=== PATIENT | female | born 1990 | race Two or more races ===

== ENCOUNTER 2022-11-28 13:00 | Outpatient (CLI) | payer BC, SELFPAY ==
--- NOTE | 2022-11-28 13:00 | CRLHL7_ITS ---
For Patients: As a result of the Century Cures Act, medical imaging exams and procedure reports are released immediately into your electronic medical record. You may view this report before your referring provider. If you have questions, please contact your health care provider. INDICATION: First trimester scan, establish dates. COMPARISON: None. TECHNIQUE: Real-time mead-scale imaging of the pelvis was performed. FINDINGS: Sonographic imaging demonstrates a single living intrauterine gestation. The embryo demonstrates a regular cardiac rate measuring 161 beats per minute. The embryo`s crown-rump length measurement of 3.7 cm corresponds to a gestational age of 10 weeks 4 days with a sonographic due date of 06/22/2023. There is a normal-appearing yolk sac. There are no gross abnormalities noted within the embryo at this early state of development. The gestational sac has a normal appearance. There is no evidence of a perigestational hemorrhage. The amount of fluid within the sac appears appropriate for gestational age. The cervix is closed. Small posterior uterine fibroid measures 1.4 x 1.1 x 1.2 cm. The ovaries are of normal size. Corpus luteal cyst left ovary. There are no suspicious fluid collections noted in the cul-de-sac. IMPRESSION: Single living intrauterine with sonographic gestational age 10 weeks 4 days and sonographic due date 06/22/2023. Small posterior fibroid measuring 1.4 x 1.1 x 1.2 cm. Dictated by Sidney Duque MD @ 11/28/2022 1:53:34 PM (Electronically Signed)
== END 2022-11-28 13:01 | disposition home or self-care (01) ==
LOC: US 13:01
PROVIDERS: Visit Provider Registered Nurse
DX: Z34.91 Encounter for supervision of normal pregnancy, unspecified, first trimester (principal); Z3A.08 8 weeks gestation of pregnancy
CPT/HCPCS: 76817; 86592; 86703; 86762; 86787; 86803; 86850; 86900; 86901; 87086; 87340; 87491; 87591

== ENCOUNTER 2023-02-13 12:53 | Outpatient (CLI) | payer BC, SELFPAY ==
--- NOTE | 2023-02-13 13:00 | CRLHL7_ITS ---
For Patients: As a result of the Century Cures Act, medical imaging exams and procedure reports are released immediately into your electronic medical record. You may view this report before your referring provider. If you have questions, please contact your health care provider. INDICATION: Evaluate anatomy. COMPARISON: 11/28/2022 TECHNIQUE: Real time mead scale imaging of the fetus was performed as well as color Doppler analysis of the umbilical vessels. FINDINGS: Sonographic imaging demonstrates a single living intrauterine gestation. Fetus demonstrates a regular cardiac rate of 141 beats per minute. Fetus has a vertex physician. The placenta lies anteriorly without evidence of placenta previa. The edge of the placenta is located 7.2 cm from the internal cervical os. Amniotic fluid volume appears normal. Single deepest vertical pocket: 4.1 cm. The cervix is closed and measures 3.8 cm in length. The composite ultrasound gestational age is calculated at 21 weeks 4 days with an estimated sonographic due date of 06/22/2023. The estimated weight is 437 grams which lies at the 46th %. The following biometric measurements were obtained: Biparietal diameter: 5.3 cm/22 weeks 0 days 63rd% Head circumference: 19.8 cm/22 weeks 0 days 56th% Abdominal circumference: 16.6 cm/21 weeks 5 days 46th% Femur length: 3.6 cm/21 weeks 3 days 35th% The HC/AC ratio measures: 1.19 range (1.06-1.24) On anatomic survey, there is a normal appearance of the cerebral ventricles, cavum septi pellucidi, cisterna magna and cerebellum. The nose, lips, and facial profile appear normal. The cervical, thoracic and lumbar spine are well visualized and appear normal. There is a normal four-chamber heart view and the left and right ventricular outflow tracts appear normal. The diaphragm and stomach appear normal. The kidneys and bladder also appear normal. There is a normal three-vessel cord and cord insertion site. The four extremities appear normal. IMPRESSION: Normal OB ultrasound exam with concordance of clinical and sonographic dating. No intrinsic abnormalities noted on anatomic survey. Dictated by Sidney Duque MD @ 02/17/2023 5:52:44 AM (Electronically Signed)
== END 2023-02-13 12:54 | disposition home or self-care (01) ==
PROVIDERS: Visit Provider Obstetrics & Gynecology
DX: Z34.92 Encounter for supervision of normal pregnancy, unspecified, second trimester (principal); Z3A.22 22 weeks gestation of pregnancy
CPT/HCPCS: 76805

== ENCOUNTER 2023-03-27 13:31 | Outpatient (CLI) | payer BC, SELFPAY | END 2023-03-27 13:32 | disposition home or self-care (01) | PROVIDERS: Visit Provider Obstetrics & Gynecology | DX: Z34.92 Encounter for supervision of normal pregnancy, unspecified, second trimester (principal) | CPT/HCPCS: 86592 ==

== ENCOUNTER 2023-05-06 15:05 | Outpatient (CLI) | payer BC, SELFPAY ==
[2023-05-06 15:18] VITALS: PULSE 65; O2SAT 98
[2023-05-06 15:23] VITALS: PULSE 76; O2SAT 96
[2023-05-06 15:28] VITALS: PULSE 77; O2SAT 98
[2023-05-06 15:31] VITALS: TEMP 36.6
[2023-05-06 15:32] VITALS: BP 108/53; PULSE 68
--- NOTE | 2023-05-06 17:05 | P.OBLDTN_ITS ---
OB - Triage/Final Diagnosis Visit Information Time Seen by Provider: 17:00 Date Seen: 05/06/23 Narrative: The patient is a 32 year old 4 para 2 at 33 weeks gestation by first trimester US seen in triage for pelvic pressure. course is complicated by GERD, obesity and small fibroid uterus. Patient notes that she has had constant pelvic pain when she is up on her feet, greatest at work. She notes her pelvic pain was so severe that she left work today. 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 Over the last few days, she notes increasingly painful constant pelvic pressure where baby feels as though they have dropped. She additionally will notice intermittent episodes of tightening, about once per hour. She notes her pelvic pressure and contra ctions/Bahman Kelly do resolve with rest. She notes her pain is very different than what she has previously experienced in labor. Additionally is experiencing intermittent left low back/upper buttock pain, no radiation down the leg, paresthesias or weakness. Patient has tried to manage her pain with support belt and stretching, notes these are helpful but her pain persists. She has not utilized [id number] Tylenol, ice/heat, nor physical therapy. She notes that she has considered starting her maternity leave now, given her discomforts at work. She denies any vaginal bleeding or leaking of fluids. She notes an episode of thick/jelly like discharge yesterday, possibly representing mucus plug. She denies any other abnormal vaginal discharge, vulvovaginal pruritus or burning. She endorses urinary urgency attributed to pressure on her bladder, no dysuria, frequency or malodor. She has otherwise been in her lower most a bit of health, review systems negative. Evaluation Cervical dilation (cm): 0 Cervical effacement (%): 25 Laboratory results: Laboratory Tests 05/06/23 05/06/23 Range/Units 16:31 16:08 Urine Color Pending Urine Appearance Pending Urine pH Pending Ur Specific Dudley Pending Urine Protein Pending Urine Glucose (UA) Pending Urine Ketones Pending Urine Blood Pending Urine Nitrite Pending Urine Bilirubin Pending Urine Urobilinogen Pending Ur Leukocyte Esterase Pending Vaginal Bacterial Vaginosis Pending Vaginal Clau species Pending Vag C. glabrata/krusei Pending Vag T. vaginalis Pending Vital signs: Vital Signs - 24 hr 05/06/23 15:18 05/06/23 15:23 05/06/23 15:28 Temperature Pulse Rate Blood Pressure Pulse Oximetry 98 96 98 05/06/23 15:31 05/06/23 15:32 Temperature 98 F Pulse Rate 68 Blood Pressure 108/53 L Pulse Oximetry Comments: General: Alert and oriented, no acute distress. Resting in bed. Psych: Appropriate mood and affect Abdomen: Gravid, otherwise soft and nondistended. Tenderness is noted on left abdomen with Trever examination, likely over the site of her left rectus abdominus muscle. Carnett sign was equivocal. Tenderness is present even with fairly light palpation, no rebound or guarding. No tenderness to palpation over the pubic symphysis. Back: Tenderness to palpation along left SI joint/upper buttock. Pelvic: Perineum is dry, scant physiologic discharge noted at vaginal introitus. Vaginitis swab obtained. Sterile vaginal exam completed, cervix is closed and long, approximately 25% effaced. Cervical position is posterior and fetus is not engaged in the pelvis. Fetus (Single) Heart Rate Baseline: 130 [facility] Variability: Moderate (6-25) Monitor Accelerations: Absent Monitor Decelerations: None Station: -3 Final Diagnosis (1) related pelvic pain in third trimester, antepartum: Status: Acute Problem details: Ms. Clemens is a 32yo at 33w2d GA seen for pelvic pressure and abdominal/back pain in . course is complicated by GERD, obesity and small uterine fibroid. Patient is seen today with increasingly uncomfortable pelvic pressure and intermittent contractions about once per hour. Her symptoms are significantly exacerbated while at work attributed to increased activity, resolve with rest. Her pain required her to leave work today due to discomfort, where she subsequently presented to care to ensure her baby was doing well. Clinical description of her constant pelvic pain and rare contractions only in the setting of activity/work is fortunately most consistent with musculoskeletal discomforts of . No signs or symptoms of labor at this time - given absent contractions on tocometry and closed cervix. Patient notes that her symptoms feel very different than that experienced in labor previously. She notes mild improvement of her constant pelvic pain with use of a support belt and stretching while at work, but these conditions have become increasingly bothersome through time. Physical exam today is reassuring as above, aside from left tenderness to palpation overlying the left rectus abdomi nus muscle and SI joint. We discussed musculoskeletal pain in , likely etiology including advancing gestation and multiparity. Encouraged her to utilize her support belt throughout the day as this is previously been helpful. Encourage stretching/yoga, light activity. Discussed pain management with ice/heat, lidocaine patch and Tylenol as needed. We discussed strict return precautions in the setting of regular/painful uterine contractions, vaginal bleeding, leaking of fluids or decreased movement. Plan to notify patient if her vaginitis swab or urinalysis are suggestive of infectious etiology. She is hesitant to return to work due to the discomfort she experiences there, where I have provided a work note to excuse her from all work on 05/07/2023 through 05/08/2023. She is interested in starting her maternity leave sooner, which she certainly can do but I did explain that medically we do not need to place her on bed rest. No further questions today. Patient expressed understanding and is agreeable to above plan.
--- NOTE | 2023-05-06 17:16 | PC.OBNST ---
NST Note NST Note Start: 05/06/23 15:26 Freq: ONCE Status: Active Protocol: Document 05/06/23 17:13 SCIENTOLOGY (Rec: 05/06/23 17:14 SCIENTOLOGY [id number]) NST Note 4 Para (# of births) 2 EDC 06/22/23 Gestational Age In Weeks & Days 33 Weeks & 2 Days Patient Presented with Complaint(s) of Contractions/cramping Reactive Yes Appropriate for Gestational Age Yes KATE Jain Date 05/06/23 Reactive Yes Appropriate for Gestational Age Yes KATE Patterson (provider) Date 05/06/23 OB NST charge Yes Complete NST Note via Write Note Yes The provider's electronic signature indicates the NST is reactive/appropriate for gestational age. *Note to provider: If an addendum is required, open the patient's chart and click on the note under the Nurse/Allied Health tab.
[2023-05-06 17:17] LABS: Appearance Urine Cloudy (Clear); Bilirubin Urine Negative (Negative); Blood Urine Negative (Negative); Color Urine Yellow (Yellow); Glucose Urine Negative (Negative); Ketones Urine Trace (Negative); Leukocyte Esterase Urine 1+ (Negative); Nitrite Urine Negative (Negative); Protein Urine Trace (Negative); Urobilinogen Urine 0.2 (0.2-1.0)
[2023-05-06 17:47] LABS: Clue Cells No Clue Cells Seen (None Seen); Trichomonas No Trichomonas Seen (None Seen); Yeast No Yeast Seen (None Seen)
[2023-05-07 10:00] LABS: Amorphous Sediment Urine Moderate; Bacteria Urine Moderate; Squamous Epithelial Cell Urine Few (None-Few)
== END 2023-05-06 16:35 | disposition home or self-care (01) ==
LOC: OB OUT 15:05 → OB 15:05
PROVIDERS: Visit Provider Obstetrics & Gynecology
DX: O47.03 False labor before 37 completed weeks of gestation, third trimester (principal); Z3A.33 33 weeks gestation of pregnancy
CPT/HCPCS: 59025; 81003; 81015; 81513; 84112; 87086; 87210; 87481; 87661; G0463

== ENCOUNTER 2023-05-28 13:03 | Outpatient (CLI) | payer BC, SELFPAY ==
[2023-05-29 14:14] LABS: Strep B DNA Probe Negative (Negative)
[2023-05-29 14:22] LABS: Strep B Susceptibility Needed? No
== END 2023-05-28 13:04 | disposition home or self-care (01) ==
LOC: NFLDREF 13:08
PROVIDERS: PCP Obstetrics & Gynecology; Visit Provider Obstetrics & Gynecology
DX: Z34.83 Encounter for supervision of other normal pregnancy, third trimester (principal)
CPT/HCPCS: 87081; 87653

== ENCOUNTER 2023-06-11 18:18 | Emergency (ER) | payer BC, SELFPAY ==
[2023-06-11 18:26] VITALS: BP 120/71; PULSE 84; RESP 18; TEMP 36.3; O2SAT 97; BMI 36.9
--- NOTE | 2023-06-11 18:48 | ED.GENADULT ---
HPI - General Adult General Chief complaint: Cough Stated complaint: cough, sore throat Time Seen by Provider: 06/11/23 18:31 History of Present Illness HPI narrative: This 32-year-old female comes in with her daughter for both of them to be seen. This patient reports cough and sore throat over the past week or so. About a week ago she did have a nasal pharyngeal swab done and returned with negative results. She is mostly concerned about her daughter's possibility of having an ear infection but wishes to be checked out herself also. She arrives with normal vital signs. She is in her 3rd trimester . Related Data Home Medications Medication Instructions Recorded Confirmed docosahexaenoic acid 200 mg 200 mg PO DAILY PRN 11/28/22 06/05/23 capsule ( DHA) Previous Rx's Medication Instructions Recorded omeprazole 20 mg tablet,delayed 20 mg PO QDAY #30 tabs 03/27/23 release Allergies Allergy/AdvReac Type Severity Reaction Status Date / Time No Known Drug Allergies Allergy Verified 06/05/23 14:12 Review of Systems Narrative: Constitutional: No fevers, no weight gain or loss. Eyes: No discharge. No vision changes. HENT: No congestion, no ear pain. She reports a sore throat. Cardiovascular: No chest pain, no palpitations. Respiratory: No shortness of breath, no wheezes. Occasional cough. Gastrointestinal: No abdominal pain, no vomiting, no diarrhea. Genitourinary: No dysuria, no hematuria. Musculoskeletal: Normal range of motion. Skin: No rashes, no pruritis. Neurological: No dizziness, weakness, sensory change, speech change. Endo/Heme/Allergies: No bruising or bleeding. No polydipsia. Pysch: no suicidality, no anxiety, no insomnia. All other systems reviewed and are negative. 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 HEENT: Normocephalic, atraumatic. Mild pharyngeal erythema without exudate or hypertrophy. Neck: Normal range of motion. Nontender. Supple. Heart: Regular. No murmurs. Normal rate. Intact distal pulses. Lungs: Clear to auscultation. No chest discomfort. No wheezes, rhonchi, or rales. Abdomen: Normal bowel sounds. Nontender gravid.. No rebound tenderness. Genitalia: Deferred. Back: No midline tenderness. Normal range of motion. Extremities: Normal range of motion. No injury. Skin: Intact. No rash. Warm. No erythema or pallor. Neurologic: No altered sensation. No weakness. Alert and oriented. Psychiatric: No suicidality. No anxiety or depression. No insomnia. Nursing notes and vitals signs are reviewed. Const: Vital Signs, click to edit/add: Vital Signs - 24 hr 06/11/23 18:26 Temperature 97.4 F L Pulse Rate [Right Pulse Oximeter] 84 Respiratory Rate 18 Blood Pressure [Ri ght Upper Arm] 120/71 Pulse Oximetry 97 Oxygen Delivery Me thod Room Air Course Vital Signs Vital signs: Initial Vital Signs Temperature 97.4 F L 06/11/23 18:26 Temperature Source Temporal Artery Scan 06/11/23 18:26 Pulse Rate 84 06/11/23 18:26 Pulse Rhythm Regular 06/11/23 18:26 Pulse Strength 3+ Normal 06/11/23 18:26 Respiratory Rate 18 06/11/23 18:26 Blood Pressure 120/71 06/11/23 18:26 Blood Pressure Mean 87 06/11/23 18:26 Blood Pressure Position Sitting 06/11/23 18:26 Pulse Oximetry 97 06/11/23 18:26 Oxygen Delivery Method Room Air 06/11/23 18:26 Vital Signs Temperature 97.4 F L 06/11/23 18:26 Pulse Rate 84 06/11/23 18:26 Respiratory Rate 18 06/11/23 18:26 Blood Pressure 120/71 06/11/23 18:26 Pulse Oximetry 97 06/11/23 18:26 Oxygen Delivery Method Room Air 06/11/23 18:26 Temperature 97.4 F L 06/11/23 18:26 Pulse Rate 84 06/11/23 18:26 Respiratory Rate 18 06/11/23 18:26 Blood Pressure 120/71 06/11/23 18:26 Pulse Oximetry 97 06/11/23 18:26 Oxygen Delivery Method Room Air 06/11/23 18:26 Medical Decision Making MDM Narrative Medical decision making narrative: This patient reports a sore throat and has an occasional cough. She was tested for viral infections last week and declines any further testing today. I did state that we could do a strep test but again she declined this test today also. She does have normal vital signs and her exam is also reassuring. The patient did receive an oral dose of dexamethasone. Discharge Plan Discharge Clinical Impression: Pharyngitis Patient Disposition: Home, Self-Care Condition: Stable Additional Instructions: Continue current plans. Follow up with MD return if worsening. Prescriptions: No Action omeprazole 20 mg tablet,delayed release (DR/EC) 20 mg PO QDAY Qty: 30 1RF DHA 200 mg capsule 200 mg PO DAILY PRN Follow Up/Referrals: Provider,Not a Local [Primary Care Provider] - Stand Alone Forms: [employer] Info Instructions
[2023-06-11] MEDS: dexAMETHasone 10 MG/ML inj PO (19:04)
== END 2023-06-11 19:16 | disposition home or self-care (01) ==
PROVIDERS: Emergency Provider Emergency Medicine Emergency Medical Services
DX: J02.9 Acute pharyngitis, unspecified (principal)
CPT/HCPCS: 99282; 99283; 99284; J1100

== ENCOUNTER 2023-06-19 07:06 | Inpatient (IN) | payer BC, SELFPAY ==
[2023-06-19] VITALS (40 sets, daily range): BP systolic 98–127; BP diastolic 50–76; PULSE 50–71; RESP 16; TEMP 36.7–37.1; O2SAT 90–100; BMI 36.8
[2023-06-19] MEDS: miSOPROStoL 25 MCG/0.25 TABLET VAGINAL (08:19)
[2023-06-19 12:19] LABS: Basophils Absolute Auto 0.01 K/uL (0.00-0.30); Basophils Percent Auto 0.1 % (0.0-3.0); Eosinophils Absolute Auto 0.12 K/uL (0.00-0.50); Eosinophils Percent Auto 1.4 % (0.0-7.0); Hematocrit 35.9 % (33.0-51.0); Hemoglobin* 12.1 gm/dL (12.0-16.0); Immature Granulocytes Abs Auto 0.07 K/uL (0.00-0.30); Immature Granulocytes Pct Auto 0.8 %; Lymphocytes Absolute Auto 1.84 K/uL (0.90-2.90); Lymphocytes Percent Auto 22.1 % (20-44); Mean Corpuscular HGB Conc 34 gm/dL (32-36); Mean Corpuscular Hemoglobin 31 pg (26-34); Mean Corpuscular Volume 92 fL (80-100); Neutrophils Absolute Auto 5.63 K/uL (1.7-7.0); Neutrophils Percent Auto 67.6 % (42.0-72.0); Platelet Count* 309 K/uL (140-440); RDW Coefficient of Variation % 12.7 % (11.5-15.5); Red Blood Count 3.91 m/uL (4.00-5.20); White Blood Count* 8.34 K/uL (4.50-11.00)
[2023-06-19 12:21] LABS: Slide Review Reflex No
[2023-06-19] MEDS: LACTATED RINGERS 1000 ML 1,000 ML 1200 ML IV (12:42)
[2023-06-19] MEDS: OXYTOCIN 30 unit/500 ML in NS 30 UNIT/500 ML BAG IVPB (13:35)
[2023-06-19] MEDS: fentaNYL 100 MCG/2 ML inj IVP (14:22)
[2023-06-19] MEDS: ROPIVACAINE 0.2% 100 ml 100 ML 12 MG EPIDURAL (15:09)
[2023-06-19] MEDS: LIDOCAINE 2% (PF) 5 ML VIAL EPIDURAL (15:10)
--- NOTE | 2023-06-19 15:14 | P.ANBPRC_ITS ---
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[employer] What is your current living situation?: I presently have a place to live Problems where you live: no known problems In the past 12 months, utilities in danger of being shut off: no In past 12 months, lack of transportation kept you from medical appts, meetings, work, or getting things needed for daily living: no In the past 12 mos, have been you worried that your food would run out before you had money to buy more?: never true In the past 12 mos, the food you bought just didn't last and you didn't have money to buy more?: never true Smoking Status: Never smoker How often does anyone, including family, friends and others, physically hurt you : never How often does anyone, including family, friends and others, insult or talk down to you: never How often does anyone, including family, friends and others, threaten you with harm: never How often does anyone, including family, friends and others, scream or curse at you: never Little interest or pleasure in doing things: not at all Feeling down, depressed, or hopeless: not at all Meds Home Medications and Allergies Home Medications Medication Instructions Recorded Confirmed Type docosahexaenoic acid 200 mg 200 mg PO DAILY PRN 11/28/22 06/19/23 History capsule ( DHA) Allergies Allergy/AdvReac Type Severity Reaction Status Date / Time No Known Drug Allergies Allergy Verified 06/19/23 08:41 Results Labs Labs: Laboratory Results - last 24 hr 06/19/23 12:08 WBC 8.34 RBC 3.91 L Hgb 12.1 Hct 35.9 MCV 92 MCH 31 MCHC 34 RDW Coeff of Steph 12.7 Plt Count 309 Neut % (Auto) 67.6 Lymph % (Auto) 22.1 [place] % (Auto) 8.0 Eos % (Auto) 1.4 Baso % (Auto) 0.1 Neut # (Auto) 5.63 Lymph # (Auto) 1.84 [place] # (Auto) 0.70 Eos # (Auto) 0.12 Baso # (Auto) 0.01 Abs Immat Gran (auto) 0.07 Imm/Tot Granulo (auto) 0.8 Blood Type A Positive Antibody Screen NEGATIVE Vital Signs Vital Signs: Last Vital Signs Temp 98.1 F 06/19/23 13:11 Pulse 56 L 06/19/23 15:13 Resp 16 06/19/23 13:11 BP 124/58 L 06/19/23 15:13 Pulse Ox 94 06/19/23 15:11 Weight: 100.244 kg Height: 165.1 cm Anesthesia Procedures Epidural Insertion Patient Location: OB Start Time: 14:45 Stop Time: 15:20 Start Date: 06/19/23 Stop Date: 06/19/23 Reason for Block: primary anesthetic Patient Position: sitting Performed By: Don Flores Preanesthetic Checklist: IV checked, risks and benefits discussed, surgical consent, monitors and equipment checked, pre-op evaluation, timeout performed a nd anesthesia consent Prep: chlorhexidine gluconate Monitoring: blood pressure monitoring, playground monitor, continuous pulse oximetry and heart rate Approach: midline Vertebral Space: lumbar (1-5) Needle Type: Tuohy needle Injection Technique: continuous catheter (catheter) Needle gauge: 17 Needle Length (cm): 10 cm Needle Insertion Depth (cm): 5 Catheter Gauge: 19 Catheter Type: multi-orifice Catheter at skin depth (cm): 10 Test Dose Result: negative and lidocaine 1.5% with epinephrine 1 to 200,000
[2023-06-19] MEDS: LACTATED RINGERS 1000 ML 1,000 ML 124 ML IV (15:23)
--- NOTE | 2023-06-19 19:00 | W.PM.LDBA ---
Subjective History of Present Illness Time Seen by Provider: 08:00 Date Seen: 06/19/23 Narrative: Patient is being admitted to Labor and Delivery for IOL. She is a 32 year old at 39.4 weeks gestation. Her full history and physical was dictated by myself on 06/05/23. Please see this for details. Active movement. Denies LOF, vaginal bleeding or abnormal vaginal discharge. Rare contractions. Specific Issues/Plans G 4 P 2011 Fiancee: Jeffrey. Baby: Boy Lennie. Children: Surendra (18yo), Sandi (2yo) H&P by Dr. Ling on 06/05/2023 1. History of macrosomia. 1st baby: 10 lb 4 oz. Recommend early 1hr: 87mg/dL on 02/13 2. BMI 34.3. Hemoglobin A1c: 5.5 3. Brother of gastric cancer in mid-April. 4. Genetic screening desired. Maternity 21 test ordered: Low risk, Boy! 5. NEEDS PP pap w/ HPV: Did not receive pap result from [facility] [employer] COVID: Completed and boosted x1. Due for booster. Recommended Flu: 02/13/23 Tdap: 04/23/2023 RSV: 05/28/2023 H&P: 06/05/23 OB - Problem Based A/P Additional Plan (1) : Status: Acute Plan - Admit for elective induction of labor - Will start with Cytotec per protocol due to low Mario's score and high head OB Exam Physical Exam Vital signs: Temp Pulse Resp BP Pulse Ox 98.7 F 59 L 16 124/68 99 06/19/23 16:43 06/19/23 18:13 06/19/23 18:13 06/19/23 18:13 06/19/23 18:13 Narrative: Physical exam: General: No acute distress Psych: Alert and oriented x4, full affect HEENT: Normocephalic, atraumatic Lungs: Unlabored breathing Abdomen: Gravid. soft, no tenderness, rebound, or guarding Skin: No lesions or rashes Lower extremities: Trace bilateral lower extremity edema Pelvic exam: Per RN 1.5/50/ and unable to palpate head. BSUS preformed by myself that confirmed cephalic presentation but the by foraminal diameter is well above the pubic symphysis.
--- NOTE | 2023-06-19 19:04 | W.PM.VAGDEL1 ---
Procedure Delivery date: 06/19/23 Procedure Done: Global Intrapartal Events: Labor Induction and Mod/Heavy Meconium Fluid Delivery monitor: external FHT Route of delivery: Laceration description: None Estimated blood loss (mL): 50 Anesthesia type: Epidural Disposition: floor Narrative: Benita is a 32 year-old G4 P 2014 admitted on 06/19/23 at 39 and 4/7 weeks gestation for elective induction of labor. Cervical exam on admission was 1.5 cm/50 % effaced/ballotable station with membranes intact in vertex presentation. Contractions were every 15 minutes. heart rate demonstrated baseline 130 bpm with moderate variability, + accelerations, - decelerations; a category I tracing. GBS negative. SROM occurred at 16 10 on 06/19/2023 with thick meconium-stained fluid. Labor Analgesia: Fentanyl/Epidural Pitocin: Yes Labor course: Patient had 25 mcg of misoprostol at 8:19 a.m. she subsequently progressed to 3/50/3 at 11 30. Pitocin was initiated at 1:35 p.m. Patient requested an epidural at 2:52 p.m. I presented at bedside for anticipated a from at 3:56 pm. She was found to be complete at that time. Amniotic sac was still intact and easily visible with separation of the labia. Very thick meconium was noted inside the amniotic sac. It was opaque that I was unable to visualize scalp through the back. Pediatric team requested to be at bedside at that time. I drained her bladder as a Raza catheter had not yet been placed after the epidural. Urine output was 100 mL of clear yellow urine. Patient started pushing at 1607 and SROM occurred, confirming thick meconium. heart tones during second stage were Category II was deep variables down the 60s with spontaneous resolution after contractions. Baseline of 140s, moderate variability and + accels. At time a viable 1610 delivered in vertex OA presentation over intact via spontaneous vaginal delivery. Infant was placed on maternal abdomen. Noted to have meconium stained skin, umbilical cord and placenta. Cord was clamped and cut after a 30-60 second delay. Nose and mouth were bulb suctioned. Infant weight: Pending. 8 at 1 minute and 8 at 5 minutes. Shoulder dystocia: No. Nuchal cord: yes - 1 loop, lose and reduced at perineum. Placenta delivered spontaneously and complete at 1612 with a 3 vessel cord. Sent for pathology due to thick meconium. Complications: None. Mother was stable after delivery. needed CPAP briefly due to cyanosis and desaturation. See pediatric noted for details. Laceration(s): None Estimated blood loss: 50 mL. Sponge and needles counts are correct. Mother and were stable at the time of this note.
[2023-06-19] MEDS: ACETAMINOPHEN 500 MG TABLET 1000 MG PO (22:10)
[2023-06-19] MEDS: IBUPROFEN 600 MG TABLET PO (22:11)
[2023-06-20] VITALS (10 sets, daily range): BP systolic 86–102; BP diastolic 52–63; PULSE 62–76; RESP 16–18; TEMP 36.4–36.7; O2SAT 96–99
[2023-06-20] MEDS: IBUPROFEN 600 MG TABLET PO ×3 (05:45→19:01)
[2023-06-20] MEDS: ACETAMINOPHEN 500 MG TABLET 1000 MG PO ×3 (05:46→19:01)
[2023-06-20 07:58] LABS: Hemoglobin* 11.7 gm/dL (12.0-16.0)
--- NOTE | 2023-06-20 09:06 | P.OBPN_ITS ---
OB - PN:Subj Subjective Time Seen by Provider: 08:35 Date Seen: 06/20/23 Narrative: The patient is a 32 -year-old 4, para 3 seen on day 1. She is status post uncomplicated normal spontaneous vaginal delivery on 06/19/2023. Antepartum course was complicated by GERD, obesity and fibroid uterus. Patient is feeling well this morning, no acute concerns. She denies any significant abdominal or pelvic pain. She ambulates without difficulty, no d izziness/lightheadedness. Tolerating p.o. intake, without nausea or vomiting. Lochia is described as moderate. She is spontaneously voiding, passing gas. No bowel movement yet. Hgb 11.7 this morning. Planning to bottle feed via formula for now. Discussed that if she wanted to utilize breast milk as well, she could consider initiation of pumping. Understands we could provide her with a pump if she were to desire this in the future. OB - PN: Obj Exam Physical Exam: Vital signs: Temp Pulse Resp BP Pulse Ox O2 Del Method 97.5 F L 62 16 102/59 L 96 Room Air 06/20/23 05:46 06/20/23 04:14 06/20/23 04:14 06/20/23 04:14 06/20/23 04:14 06/20/23 04:14 Narrative: VITAL SIGNS: Noted above. GENERAL APPEARANCE: Alert, cooperative female in no acute distress. ABDOMEN: Soft, nondistended and nontender. The uterine fundus palpates at the umbilicus. OB - PN: Obj Data Labs Labs: Laboratory Results - last 24 hr 06/19/23 06/20/23 12:08 07:47 WBC 8.34 RBC 3.91 L Hgb 12.1 11.7 L Hct 35.9 MCV 92 MCH 31 MCHC 34 RDW Coeff of Steph 12.7 Plt Count 309 Neut % (Auto) 67.6 Lymph % (Auto) 22.1 [place] % (Auto) 8.0 Eos % (Auto) 1.4 Baso % (Auto) 0.1 Neut # (Auto) 5.63 Lymph # (Auto) 1.84 [place] # (Auto) 0.70 Eos # (Auto) 0.12 Baso # (Auto) 0.01 Abs Immat Gran (auto) 0.07 Imm/Tot Granulo (auto) 0.8 Blood Type A Positive Antibody Screen NEGATIVE OB - PN: A/P Delivery Assessment and Plan (1) : Status: Acute Plan day: 1 Plan: routine care Comments: Anticipate dismissal to home tomorrow, on day 2. Routine cares in the interim.
[2023-06-21 01:05] LABS: Rapid Plasma Reagin (RPR) Non Reactive (Non Reactive)
--- NOTE | 2023-06-21 06:31 | PC.NURSE ---
Mom and baby rested well overnight. Mom's pain and bleeding controlled. Baby drinking Similac 10mls Q2. Voiding and stool in diapers. Baby active with healthy cry. VS unremarkable.
[2023-06-21 07:30] VITALS: BP 96/62; PULSE 68; RESP 16; TEMP 36.7; O2SAT 98
[2023-06-21] MEDS: IBUPROFEN 600 MG TABLET PO (07:53)
[2023-06-21] MEDS: ACETAMINOPHEN 500 MG TABLET 1000 MG PO (07:53)
[2023-06-21] MEDS: DOCUSATE SODIUM 100 MG CAPSULE PO (07:54)
--- NOTE | 2023-06-21 08:37 | P.DS_ITS ---
DS: Providers Provider Time Seen by Provider: 08:37 Date Seen: 06/21/23 Date of admission: 06/19/23 07:06 Primary care physician: Not a Local Provider Admitting Clinician: Scarlett Ling MD Attending Physician on discharge: Harriett Nam MD Exam Narrative: Exam Narrative: General: Alert and oriented, no acute distress Heart: Regular rate and rhythm, no rubs murmurs or gallops Lungs: Clear to posterior auscultation throughout, no wheezes rales or crackles. Neck: Cervical lymphadenopathy noted on the left greater than right Abdomen: Soft, nontender nondistended. Fundal height at 1 below U. Const: Vital Signs, click to edit/add: Vital Signs - 24 hr 06/20/23 09:05 06/20/23 12:40 06/20/23 16:30 Temperature 97.5 F L 97.8 F Pulse Rate [Pulse Oximeter] 76 68 68 Respiratory Rate 18 18 18 Blood Pressure [Le ft Arm] 86/52 L 94/56 L 100/63 Pulse Oximetry 99 98 97 Oxygen Delivery Me thod Room Air Room Air Room Air 06/20/23 21:37 06/20/23 21:37 06/20/23 23:33 Temperature 97.8 F 97.8 F 98.1 F Pulse Rate [Pulse Oximeter] 64 Respiratory Rate 16 Blood Pressure [Le ft Arm] 96/59 L Pulse Oximetry 97 Oxygen Delivery Me thod Room Air OB - DS: Summary Hospital Course Hospital Course: The patient is a 32 year old G 4 P 3 at 39 weeks gestation that was admitted to the [facility] on 06/19/23 for elective induction of labor. She had an uncomplicated vaginal delivery. She delivered a viable male infant. She is bottle feeding. the patient has done well. Patient is feeling well this morning, no acute concerns. Notes no significant abdominal or pelvic pain. She ambulates without difficulty, no dizziness/lightheadedness. Tolerating p.o. intake, without nausea or vomiting. Lochia is described as moderate. She is spontaneously voiding, passing gas and had a bowel movement. Her only concern this morning is worsening symptoms of her upper respiratory infection. Specifically, she is noting some increased cough and her left ear fullness/pressure. She has had nasal congestion intermittent cough over the last week or so, no fevers/chills or known sick contacts. Offered COVID/flu swabs, politely declined. Planning to bottle feed with formula. [place] Infant Gender: Male Time Spent with Patient Time attestation: Total time spent providing and/or coordinating discharge services: Discharge Plan Discharge Disposition: Home, Self-Care Date of Admission: 06/19/23 07:06 Primary Care Provider: Provider,Not a Local Condition: Stable Anticipated Discharge Date/Time: 06/21/23 08:44 Discharge Medications: Continued omeprazole 20 mg tablet,delayed release (DR/EC) 20 mg PO QDAY Qty: 30 1RF DHA 200 mg capsule 200 mg PO DAILY PRN Discharge Orders: Discharge Order (Routine); Ordered 06/21/23 Ordered By: Huma Diego Patient Education: OB Vaginal/Bottle Feeding Additional Instructions: Discharge instructions were reviewed with the patient including signs and symptoms of infection and home going medications Nothing vaginally for 6 weeks: no tampons or intercourse Do not drive while taking narcotic pain medication(s) Off Work or School for 8 weeks Symptoms to report to doctor: * Bleeding that saturates more than one pad per hour * Passing clots larger than the size of a golf ball * Pain not relieved by prescribed medication * Fever above 100.4 degrees Fahrenheit * A foul vaginal odor * Difficulty in emotions, mood, and functions * Thoughts of hurting yourself and/or * Painful, reddened area in your breast * Any drainage, redness, or tenderness in your IV/epidural site * Severe headache that doesn't improve after taking medications * Changes in vision, including temporary loss of vision, blurred vision, and/or light sensitivity * Upper abdominal pain (usually under ribs on the right side) * Decrease in urination or painful, frequent urinating * Chest pain * Shortness of breath * Tenderness or pain with redness and/swelling in the calf(s) of your leg Optional 2-week visit: discuss infant feeding concerns, review control options and screen for anxiety/depression. 6-week visit for an annual exam. consultation services are available to all mothers and babies for the first year after delivery.? To make an appointment, please call [phone]. Activity Level: Activity as Tolerated Discharge Diet: Regular Follow Up Appointments: Provider,Not a Local [Primary Care Provider] - Forms: [employer] Info Instructions
--- NOTE | 2023-06-22 13:39 | PM.ANPOST ---
Post Anesthesia Note Post Anesthesia Note Patient seen: Inpatient Respiratory Status: adequate Cardiovascular Status: adequate Mental Status: baseline Pain: adequate Temp: baseline Anesthetic awareness: N/A Complications: none Follow care: none
== END 2023-06-21 10:45 | disposition home or self-care (01) | DRG 560 ==
PROVIDERS: Admitting Provider Obstetrics & Gynecology; Visit Provider Obstetrics & Gynecology
DX: O77.0 Labor and delivery complicated by meconium in amniotic fluid (principal); K21.9 Gastro-esophageal reflux disease without esophagitis; O99.214 Obesity complicating childbirth; E66.9 Obesity, unspecified; O34.13 Maternal care for benign tumor of corpus uteri, third trimester; D25.9 Leiomyoma of uterus, unspecified; Z3A.39 39 weeks gestation of pregnancy; Z37.0 Single live birth
CPT/HCPCS: 01967; 36415; 59200; 85018; 85025; 86592; 86850; 86900; 86901; 88307; A9270; J2371; J2795; J3010; J7120

== ENCOUNTER 2023-09-18 15:27 | Outpatient (CLI) | payer BC, SELFPAY ==
[2023-09-18 18:39] LABS: Chlamydia DNA Amplified* NOT DETECTED (No Detected); GC DNA Amplified* NOT DETECTED (No Detected)
== END 2023-09-18 15:28 | disposition home or self-care (01) ==
PROVIDERS: Visit Provider Registered Nurse
DX: Z11.3 Encounter for screening for infections with a predominantly sexual mode of transmission (principal); Z13.220 Encounter for screening for lipoid disorders
CPT/HCPCS: 80061; 86592; 86703; 86803; 87340; 87491; 87591

== ENCOUNTER 2024-08-04 16:48 | Emergency (ER) | payer BC, SELFPAY ==
[2024-08-04 16:52] VITALS: BP 141/77; PULSE 99; RESP 18; TEMP 37.8; O2SAT 7; BMI 35.0
--- NOTE | 2024-08-04 17:26 | CRLHL7_ITS ---
For Patients: As a result of the Cures Act, medical imaging exams and procedure reports are released immediately into your electronic medical record. You may view this report before your referring provider. If you have questions, please contact your health care provider. INDICATION: Cough, history passive tuberculosis TECHNIQUE: Chest radiograph 2 views COMPARISON: None FINDINGS: Mediastinum: The mediastinum is normal in appearance. The heart silhouette is normal in size and morphology. Lung: Both lungs are unremarkable in appearance with small lung volumes. No sign of pleural effusion seen. No pneumothorax is identified. Bone and Soft tissue: Unremarkable for age. IMPRESSION: 1. No acute cardiopulmonary disease is seen. Prelim Report By Dr. Gabriel Bauer @ 08/04/2024 5:37:02 PM (Electronically Signed)
[2024-08-04 17:28] VITALS: O2SAT 97
--- NOTE | 2024-08-04 17:28 | ED_ITS ---
HPI - Chest Pain General Chief Complaint: Chest Pain Stated Complaint: L chest pain, weak Time Seen by Provider: 08/04/24 17:05 History of Present Illness HPI narrative: This 33-year-old female comes in reporting some chest discomfort in the mid to upper sternal area. She states that this is reproducible with coughing, deep breath, and with pressing in this area. She went back to [place] for her brother's several months ago and returned with a positive test for tuberculosis. She took right fem pin for 2 months and discontinued at when it was post to be taken for 3 or 4 months. She did not care for how this medicine made her feel. Over the past couple days she has developed cough and chest discomfort and has felt hot at times. Related Data Previous Rx's ?Medication ?Instructions ?Recorded acetaminophen 300 mg-codeine 30 mg 1 tab PO Q6H PRN pain #15 tabs 08/04/24 tablet Allergies Allergy/AdvReac Type Severity Reaction Status Date / Time No Known Drug Allergies Allergy Verified 08/04/24 17:03 Review of Systems Status of ROS Reports: 10 or more systems reviewed and unremarkable except as noted in History and below Narrative Constitutional: No fevers, no weight gain or loss. Eyes: No discharge. No vision changes. HENT: No congestion, no sore throat, no ear pain. Cardiovascular: No palpitations. Respiratory: No shortness of breath, no wheezes, no cough. Gastrointestinal: No abdominal pain, no vomiting, no diarrhea. Genitourinary: No dysuria, no hematuria. Musculoskeletal: Normal range of motion. Skin: No rashes, no pruritis. Neurological: No dizziness, weakness, sensory change, speech change. Endo/Heme/Allergies: No bruising or bleeding. No polydipsia. Pysch: no suicidality, no anxiety, no insomnia. All other systems reviewed and are negative. 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 [employer] What is your current living situation?: I presently have a place to live Problems where you live: no known problems In the past 12 months, utilities in danger of being shut off: no In past 12 months, lack of transportation kept you from medical appts, meetings, work, or getting things needed for daily living: no In the past 12 mos, have been you worried that your food would run out before yo u had money to buy more?: never true In the past 12 mos, the food you bought just didn't last and you didn't have money to buy more?: never true Smoking Status: Never smoker How often does anyone, including family, friends and others, physically hurt you : never How often does anyone, including family, friends and others, insult or talk down to you: never How often does anyone, including family, friends and others, threaten you with harm: never How often does anyone, including family, friends and others, scream or curse at you: never Exam Narrative Exam Narrative: Constitutional: Well-developed, well-nourished, no acute distress. HEENT: Normocephalic, atraumatic. Neck: Normal range of motion. Nontender. Supple. Heart: Regular. No murmurs. Normal rate. Intact distal pulses. Lungs: Clear to auscultation. No wheezes, rhonchi, or rales. Abdomen: Normal bowel sounds. Nontender. No rebound tenderness. Chest: Discomfort is reproduced in the midsternal area when taking a deep breath, coughing, or pressing along the sternal border. Genitalia: Deferred. Back: No midline tenderness. Normal range of motion. Extremities: Normal range of motion. No injury. Skin: Intact. No rash. Warm. No erythema or pallor. Neurologic: No altered sensation. No weakness. Alert and oriented. Psychiatric: No suicidality. No anxiety or depression. No insomnia. Nursing notes and vitals signs are reviewed. Const Vital Signs, click to edit/add: Vital Signs - 24 hr 08/04/24 16:52 08/04/24 17:28 08/04/24 17:39 Temperature 100.1 F H Pulse Rate 90 Pulse Rate [Right Pulse Oximeter] 99 Respiratory Rate 18 15 Blood Pressure [Right Upper Arm] 141/77 H Pulse Oximetry 7 L 97 97 Oxygen Delivery Method Room Air Room Air 08/04/24 17:45 08/04/24 18:00 08/04/24 18:15 Temperature Pulse Rate 86 85 88 Pulse Rate [Right Pulse Oximeter] Respiratory Rate 12 9 L 22 Blood Pressure [Right Upper Arm] Pulse Oximetry 99 98 96 Oxygen Delivery Method Course Vital Signs Vital signs: Initial Vital Signs Temperature 100.1 F H 08/04/24 16:52 Temperature Source Temporal Artery Scan 08/04/24 16:52 Pulse Rate 99 08/04/24 16:52 Respiratory Rate 18 08/04/24 16:52 Blood Pressure 141/77 H 08/04/24 16:52 Blood Pressure Mean 98 08/04/24 16:52 Blood Pressure Position Sitting 08/04/24 16:52 Pulse Oximetry 7 L 08/04/24 16:52 Oxygen Delivery Method Room Air 08/04/24 16:52 Vital Signs Temperature 100.1 F H 08/04/24 16:52 Pulse Rate 99 08/04/24 16:52 Respiratory Rate 18 08/04/24 16:52 Blood Pressure 141/77 H 08/04/24 16:52 Pulse Oximetry 7 L 08/04/24 16:52 Oxygen Delivery Method Room Air 08/04/24 16:52 Temperature 100.1 F H 08/04/24 16:52 Pulse Rate 88 08/04/24 18:15 Respiratory Rate 22 08/04/24 18:15 Blood Pressure 141/77 H 08/04/24 16:52 Pulse Oximetry 96 08/04/24 18:15 Oxygen Delivery Method Room Air 08/04/24 17:28 Medications Administered Medications: Discontinued Medications Generic Name Dose Route Start Last Admin Trade Name Freq PRN Reason Stop Dose Admin Sodium Chloride 1,000 mls @ 1,000 mls/hr 08/04/24 17:30 08/04/24 18:05 0.9 % Sodium Chloride 1000 Ml IV 08/04/24 18:29 1,000 mls/hr .Q1H JULIEN Administration Ketorolac Tromethamine 15 mg 08/04/24 17:26 08/04/24 18:06 Ketorolac 30 Mg/Ml Inj IVP 08/04/24 17:27 15 mg ONCE ONE Administration Ondansetron HCl 4 mg 08/04/24 17:26 08/04/24 18:06 Ondansetron 2 Mg/Ml Inj IVP 08/04/24 17:27 4 mg ONCE ONE Administration MDM - Chest Pain MDM Narrative Medical decision making narrative: This patient comes in with reproducible chest discomfort and frequent coughing. She arrives with normal vital signs. Her temperature is a bit below the threshold for fever at 100.1? F. Labs are acquired and these returned with reassuring results. Her white count is a bit elevated. Nasal pharyngeal swab is negative. Chest x-ray is also negative for acute pulmonary disease. Bedside ultrasound of her heart and lungs also showed normal findings. The patient did receive IV doses of Toradol, Zofran, and a L of normal saline. She states that she is feeling better. She is okay to be discharged home. I did provide a prescription for Tylenol 3 for symptomatic relief. Lab Data Labs: Lab Results 08/04/24 08/04/24 08/04/24 Range/Units 17:02 17:27 17:54 WBC 13.90 H (4.50-11.00) K/uL RBC 3.99 L (4.00-5.20) m/uL Hgb 12.3 (12.0-16.0) gm/dL Hct 37.3 (33.0-51.0) % MCV 94 (80-100) fL MCH 31 (26-34) pg MCHC 33 (32-36) gm/dL RDW Coeff of Steph 12.3 (11.5-15.5) % Plt Count 301 (140-440) K/uL Neut % (Auto) 72.2 H (42.0-72.0) % Lymph % (Auto) 18.6 L (20-44) % [place] % (Auto) 8.0 (0.0-11.0) % Eos % (Auto) 1.0 (0.0-7.0) % Baso % (Auto) 0.1 (0.0-3.0) % Neut # (Auto) 10.00 H (1.7-7.0) K/uL Lymph # (Auto) 2.60 (0.90-2.90) K/uL [place] # (Auto) 1.10 H (0.00-0.90) K/UL Eos # (Auto) 0.10 (0.00-0.50) K/uL Baso # (Auto) 0.00 (0.00-0.30) K/uL Abs Immat Gran (auto) 0.00 (0.00-0.30) K/uL Imm/Tot Granulo (auto) 0.1 % Sodium 136 (135-149) mmol/L Potassium 3.8 (3.6-5.1) mmol/L Chloride 102 (96-114) mmol/L Carbon Dioxide 26 (20-32) mmol/L Anion Gap 8 (7-15) mEq/L BUN 11 (5-24) mg/dL Creatinine 0.7 (0.5-1.5) mg/dL Estimated Creat Clear 100.94 Estimated GFR 116 ml/min Glucose 91 (60-115) mg/dL Calcium 8.9 (8.4-10.6) mg/dL SARS-CoV-2 (PCR) Negative SARS-CoV-2 (Negative) Influenza Type A (PCR) Negative PCR FLU A (Negative) Influenza Type B (PCR) Negative PCR FLU B (Negative) RSV (PCR) Negative PCR RSV (Negative) POC Troponin I 0.00 L (0.01-0.04) ng/ml Imaging Data Chest x-ray: Radiologist's impression: No acute cardiopulmonary disease is seen. ECG Data Attestation: I personally reviewed and interpreted this ECG as follows: Interpretation: Normal sinus rhythm. Rate is 105 beats per minute. There are no ST or T-wave abnormalities. Discharge Plan Discharge Clinical Impression: Acute upper respiratory infection Patient Disposition: Home, Self-Care Condition: Improved Additional Instructions: Take medication as needed and indicated. Use [id number] medicines also as needed and directed. Follow up with MD return if worsening. Prescriptions: New acetaminophen-codeine 300-30 mg tablet 1 tab PO Q6H PRN (Reason: pain) Qty: 15 0RF Follow Up/Referrals: Provider,Not a Local [Primary Care Provider] - Stand Alone Forms: [employer] Info Instructions Procedures Ultrasound Cardiac exam #1: Anatomical areas examined: parasternal long and parasternal short Indications: chest pain Exam type: limited transthoracic echocardiogram Impression: negative exam
[2024-08-04 17:39] VITALS: PULSE 90; RESP 15; O2SAT 97
[2024-08-04 17:45] VITALS: PULSE 86; RESP 12; O2SAT 99
[2024-08-04 17:57] LABS: Basophils Percent Auto 0.1 % (0.0-3.0); Hematocrit 37.3 % (33.0-51.0); Hemoglobin* 12.3 gm/dL (12.0-16.0); Immature Granulocytes Pct Auto 0.1 %; Lymphocytes Percent Auto 18.6 % (20-44); Mean Corpuscular HGB Conc 33 gm/dL (32-36); Mean Corpuscular Hemoglobin 31 pg (26-34); Mean Corpuscular Volume 94 fL (80-100); Neutrophils Percent Auto 72.2 % (42.0-72.0); Platelet Count* 301 K/uL (140-440); RDW Coefficient of Variation % 12.3 % (11.5-15.5); Red Blood Count 3.99 m/uL (4.00-5.20)
[2024-08-04 18:00] VITALS: PULSE 85; RESP 9; O2SAT 98
[2024-08-04] MEDS: 0.9 % SODIUM CHLORIDE 1000 ml 1,000 ML IV (18:05)
[2024-08-04] MEDS: KETOROLAC 30 MG/ML inj 15 MG IVP (18:06)
[2024-08-04] MEDS: ONDANSETRON 2 MG/ML inj 4 MG IVP (18:06)
[2024-08-04 18:13] LABS: Slide Review Reflex No
[2024-08-04 18:15] VITALS: PULSE 88; RESP 22; O2SAT 96
[2024-08-04 18:15] LABS: PCR FLU A Negative PCR FLU A (Negative); PCR FLU B Negative PCR FLU B (Negative); PCR RSV Negative PCR RSV (Negative); SARS PCR* Negative SARS-CoV-2 (Negative)
[2024-08-04 18:20] LABS: Chloride* 102 mmol/L (96-114); Potassium* 3.8 mmol/L (3.6-5.1); Sodium* 136 mmol/L (135-149)
[2024-08-04 18:23] LABS: Anion Gap 8 mEq/L (7-15); Blood Urea Nitrogen* 11 mg/dL (5-24); Calcium* 8.9 mg/dL (8.4-10.6); Carbon Dioxide* 26 mmol/L (20-32); Creatinine* 0.7 mg/dL (0.5-1.5); Est. Creatinine Clearance* 100.94; Estimated Glomerular Filt Rate 116 ml/min; Glucose* 91 mg/dL (60-115)
--- OUTSIDE RECORDS SUMMARY | 2024-08-04 19:31 | XMS_ITS | Encounter Summary ---
Author Organization [place] Address [facility] [place] [address] Care Team Providers Care Pigskin Trimmer Name Role Phone Liane Garnica APRN [employer] Primary Care Provider [phone] Liane Garnica APRN [employer] Unavailable [phone] Reason for Visit * Reason Onset Date Comments Patient Request 05/19/2024 Encounter Details Date Type Department Care Team (Late st Contact Info) Description 05/19/2024 Telephone [facility] [address], [address] [place] [address] Liane Garnica APRN [employer] [id number] [place], [place] [address] Patient Request Social History Tobacco Use Types Packs/Day Years Used Date Smoking Tobacco: Never Smokeless Tobacco: Never Alcohol Use Standard Drinks/Week Comments No 0 (1 standard drink = 0.6 oz pur e alcohol) PHQ-2 Answer Date Recorded PHQ-2 Score 0 03/07/2024 Adolescent Education Answer Date Record ed Getting School Help Needed Not on file 01/16 Comments No Sex and Gender Information Value Date Recorded Sex Assigned at Not on file Legal Sex Female 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 Gender Identity Not on file Sexual Orientation Not on file 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 Patient hasmoved and wants to know what she should do with her medication or care. What are your questions or concerns: contact patient Date of last appointment with provider: na Could we send this information to you in [employer] or would you prefer to receive a phone call?: Patient would prefer a phone call Okay to leave a detailed message?: Yes at Cell number on file: Telephone Information: FARMER documented in this encounter Plan of Treatment Not on file documented as of this encounter Visit Diagnoses Not on filedocumented in this encounter Additional Health Concerns Assessment Noted Time PHQ-9 Depression Total Score: 16 019 9:14 AM CDT documented as of this encounter Care Teams Pigskin Trimmer Relationship Specialty Start Date End Date Liane Garnica APRN [employer] [address] [address] [id number] PCP - General Family Medicine 03/07/24 Liane Garnica APRN [employer] [address] [place] [id number] Assigned PCP 03/19/24 documented as of this encounter
--- OUTSIDE RECORDS SUMMARY | 2024-08-04 19:31 | XMS_ITS | Clinical Summary ---
Author Organization [facility] Address [address] [place] [address] Care Team Providers Care Yarding And Folding Machine Operator Name Role Phone Unavailable Primary Care Provider Unavailabl e Allergies No known active allergies Medications vitamin with Ca,No.72-Iron-FA ( PLUS) 27 mg iron- 1 mg oral tablet Take 1 tablet by mouth once daily. Active cholecalciferol (VITAMIN D3) 400 unit (10 mcg) oral Tab tablet Take 10 mcg by mouth once daily. Active RIFAMPIN ORAL Take by mouth. Active oxyCODONE, immediate release, (ROXICODONE) 5 mg oral tablet Take 1 tablet (5 mg) by mouth every 4 (four) hours as needed. 16 tablet 03/29/2024 4:59 PM RRTS 03/29/2024 Active Active Problems Problem Noted Date Diagnosed Date (normal spontaneous vaginal delivery) 07/01 Acute stress disorder 06/24/2018 Tear of meniscus of right knee, subsequent encou nter 03/26/2015 Uses control 07/19/2013 Vitamin D deficiency 09/02/2011 Resolved Problems Problem Noted Date Diagnosed Date Resolved Date Supervision of normal 06/29/2021 07/02/2021 GBS (group B Streptococcus c arrier), +RV culture, currently 06/29/2021 07/02/2021 Immunizations Name Administration Dates Next Due MMR 07/02/2021 Td adult adsorbed (lf) unspecified 09/05/2008 Family History Medical History Relation Comments Asthma Brother Diabetes Father Thyroid Disease Maternal Aunt Hyperthyroid High Blood Pressure Mother High Cholesterol Mother Thyroid Disease Other COUSIN HAVE HYPO THYROID Cancer Paternal Grandfather lungs cance r Relation Status Comments Brother Father Maternal Aunt Mother Other Paternal Grandfather Social History Tobacco Use Types Packs/Day Years Used Date Smoking Tobacco: Never Smokeless Tobacco: Never Alcohol Use Standard Drinks/Week Comments Not Currently 0 (1 standard drink = 0.6 oz pur e alcohol) [place] Depression Scale Answer Date Recorded [place] Depression Scale Total 2 07/01/2021 The thought of harming myself has occurred to me . 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 Not on file Not on file Not on file Last Filed Vital Signs Vital Sign Reading Time Taken Comments Blood Pressure 105/56 03/29/2024 6:45 PM RRTS Pulse 60 03/29/2024 6:45 PM RRTS Temperature 36.5 C (97.7 F) 03/29/2024 6:00 PM RRTS Respiratory Rate 18 03/29/2024 6:45 PM RRTS Oxygen Saturation 98% 03/29/2024 6:45 PM RRTS Inhaled Oxygen Concentration - - Weight 94 kg (207 lb 3.2 oz) 03/29/2024 1:10 PM RRTS Height 162.6 cm (5' 4) 03/29/2024 1:10 PM RRTS Body Mass Index 35.57 03/29/2024 1:10 PM RRTS Plan of Treatment Health Maintenance Due Date Last Done Comments Hepatitis C Screening 1990 Anxiety Follow-Up (THIERNO-7) 1989 Depression Assessment (PHQ-2) 1989 Pap Smear 08/25/2013 08/26/2011, 08/26 (Previously completed), 10/26/2009 (Previously completed) Diabetes Screening 09/28/2018 09/29/2015, 1 06/09/2013, 08/03/2013, Additional history exists COVID-19 Vaccine ( season) 2023 08/07/2020, 07/17/2020 Adult Tetanus Booster 04/23/2033 04/23/2023 , 05/15/2021, 06/25/2012, Additional history exists RSV Vaccines (1 - 1-dose 75+ series) 08/14/2063 05/28/2023 Influenza Vaccine Completed 03/07/2024, , 01/16/2021, Additional history exists Pneumococcal Vaccine Aged Out No long er eligible based on patient's age to complete this topic Procedures Procedure Name Priority Date/Time Associated Diagnosis Comments GLUCOSE, RANDOM STAT 09/29/2015 9:50 PM CDT CYTOLOGY GYNECOLOGICAL Routine 2 11:50 AM CDT Routine adult health maintenance from Last 3 Months or Most Recently Relevant to Health Maintenance Results * Glucose, Serum (09/29/2015 9:50 PM CDT) Glucose 100 70 - 110 mg/dL 09/29/2015 10:20 PM CDT [facility] Blood Collection / Unknown 09/29/2015 9:50 PM CDT 09/29/2015 9:54 PM CDT us Brooke Conklin MD CHEMISTRY ORDERABLE Final Result [facility] [address] [place] [address] * CYTOLOGY GYNECOLOGICAL (08/26/2011 11:50 AM CDT) ICE HOCKEY COACH CYTOLOGY Normal [facility] Comment: [facility] [address] [place] [id number] CYTOLOGY REPORT Patient Name: BENITA SCHMITT Specimen No: [id number] Location: [facility] Age: 21 Sex: F Carlos. Date: 08/26/2011 Med. Rec. #: [id number] : 1990 Received: 08/27/2011 Physician(s): Myra Braun MD Reported: 09/02/2011 SOURCE OF SPECIMEN CERVICAL-THIN PREP (HPV REFLEX) Manual Writer Screening CLINICAL HISTORY Menstrual History: Regular SPECIMEN ADEQUACY Satisfactory for evaluation. Endocervical/transformation zone component present. INTERPRETATION Negative for intraepithelial lesion or malignant cells. Electronically Signed Out [facility] /djs 09/02/2011 CERVIX UTERI STRUCTURE / Unknown 08/26/2011 11:50 AM CDT 08/27/2011 11:50 AM CDT Myra Braun MD PATHOLOGY/CYTOLOGY ORDERABLE Fi nal Result [facility] [address] [place] [address] from Last 3 Months or Most Recently Relevant to Health Maintenance Insurance [facility] [place] [id number] [facility] PMAP/[facility] [employer] [place] [employer] Advance Directives For more information, please contact: [phone] * Full Code (Latest Code Status on File) Date Activated Date Inactivated Comments 03/29/2024 1:04 PM 03/30/2024 1:03 AM Question Answer Comments How was code status determined? Patient * Full Code Date Activated Date Inactivated Comments 06/30/2021 7:25 AM 07/02/2021 6:11 PM Question Answer Comments How was code status determined? Patient
--- OUTSIDE RECORDS SUMMARY | 2024-08-04 19:31 | XMS_ITS | Encounter Summary ---
Author Organization [place] Address [facility] [place] [address] Care Team Providers Care Manager Trainee Name Role Phone Liane Garnica APRN, CNP Primary Care Provider [phone] Liane Garnica APRN SUPERVISOR BRAKE REPAIR Unavailable [phone] Encounter Details Date Type Department Care Team (Late st Contact Info) Description 05/20/2024 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 Not on file Not on file documented as of this encounter Plan of Treatment Not on file documented as of this encounter Visit Diagnoses Not on filedocumented in this encounter Additional Health Concerns Assessment Noted Time PHQ-9 Depression Total Score: 16 019 9:14 AM CDT documented as of this encounter Care Teams Manager Trainee Relationship Specialty Start Date End Date Liane Garnica APRN CNP [address] [facility] [place] [address] PCP - General Family Medicine 03/07/24 Liane Garnica, MEDICAL OFFICE REP SUPERVISOR BRAKE REPAIR [address] [place] [id number] Assigned PCP 03/19/24 documented as of this encounter
--- OUTSIDE RECORDS SUMMARY | 2024-08-04 19:31 | XMS_ITS | Encounter Summary ---
Author Organization [place] Address [address] [facility] [place] [address] Care Team Providers Care Cushion Mat Maker Name Role Phone Eboni Garrett MD Primary Care Provider [phone] Brooke Jansen PA-C Unavailable [phone] No Ref-Primary, Physician Primary Care Provider Liane Garnica APRN FRONT MAKER Primary Care Provider [phone] Liane Garnica APRN FRONT MAKER Unavailable [phone] Encounter Details Date Type Department Care Team (Late st Contact Info) Description 07/13/2018 [facility] Extended Documentation [facility] Services [address] [address] Neyda Watson, PhD [address] [place] [address] Social History Tobacco Use Types Packs/Day Years Used Date Smoking Tobacco: Never Smokeless Tobacco: Never Alcohol Use Standard Drinks/Week Comments No 0 (1 standard drink = 0.6 oz pur e alcohol) PHQ-2 Answer Date Recorded PHQ-2 Score 6 06/24/2018 Comments No Sex and Gender Information Value Date Recorded Sex Assigned at Not on file Legal Sex Female 9:52 AM PAINT MIXER HAND Gender Identity Not on file Sexual Orientation [...] documented as of this encounter Care Teams Cushion Mat Maker Relationship Specialty [place] [address] [place] [id number] PCP - General Family Practice 04/04/13 01/25/24 No Ref-Primary, Physician PCP - General 01/26/24 03/06/24 Liane Garnica APRN FRONT MAKER [address] [place] [id number] PCP - General Family Medicine 03/07/24 Brooke Jansen PA-C [address] [place] [id number] Assigned PCP 12/27/17 06/29/21 Liane Garnica APRN FRONT MAKER [address] [place] [id number] Assigned PCP 03/19/24 documented as of this encounter
--- OUTSIDE RECORDS SUMMARY | 2024-08-04 19:31 | XMS_ITS | Encounter Summary ---
Author Organization [place] Address [facility] [place] [address] Care Team Providers Care Conflict Resolution Professional Name Role Phone Eboni Garrett MD Primary Care Provider Brooke Jansen-C Unavailable [phone] Brooke Jansen PA-C Unavailable [phone] No Ref-Primary, Physician Primary Care Provider Liane Garnica APRN PORT CDL A DRIVER Primary Care Provider + [phone] Liane Garnica APRN PORT CDL A DRIVER Unavailable [phone] Reason for Visit * Reason Onset Date Comments Results 10/17/2016 Encounter Details Date Type Department Care Team (Late st Contact Info) Description 10/17/[address] [place] [phone] Bridget Gerber APRN PORT CDL A DRIVER [address] [place] [address] Results Social History Tobacco Use Types Packs/Day Years Used Date Smoking Tobacco: Never Smokeless Tobacco: Never Alcohol Use Standard Drinks/Week Comments No 0 (1 standard drink = 0.6 oz pur e alcohol) Comments No Sex and Gender Information Value Date Recorded Sex Assigned at Not on file Legal Sex Female 9:52 AM CONTRACT NEGOTIATION SPECIALIST Gender Identity Not on file Sexual Orientation Not on file 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 Patient stated she would like Bridget Gerber NP to personally give her a call to discuss vitamins she shouldbe taking and recent hair loss. Informed her I would send her the message to see if she can give her a call or she might need to set up an appointment. Patient verbalized understanding. Eboni Ortega CMA (AAMA) * Telephone Encounter - Karina Skinner - 10/17/2016 10:59 AM CDT LM for Pt to call back to clinic please see below. Please call Ayaka (pronounced Mon-see) and let her know her blood work overall looked good. ??Her vitamin D level was on the very low end of normal so I would like her to take high dose vitamin D once weekly for 8 weeks and have her levels rechecked after that. ??I sent the prescription to [facility]. Bridget Gerber NP-C documented in this encounter Plan of Treatment Not on file documented as of this encounter Visit Diagnoses Not on filedocumented in this encounter Care Teams Conflict Resolution Professional Relationship Specialty [place] [address] [facility] [place] [address] PCP - General Family Practice 04/04/13 01/25/24 Brooke Jansen PA-C [address] [facility] [place] [address] PCP - Assigned PCP 12/27/17 06/29/18 No Ref-Primary, Physician PCP - General 01/26/24 03/06/24 Liane Garnica APRN PORT CDL A DRIVER [address] [place] [id number] PCP - General Family Medicine 03/07/24 Brooke Jansen PA-C [address] [place] [id number] Assigned PCP 12/27/17 06/29/21 Liane Garnica APRN PORT CDL A DRIVER [address] [place] [id number] Assigned PCP 03/19/24 documented as of this encounter
--- OUTSIDE RECORDS SUMMARY | 2024-08-04 19:31 | XMS_ITS | Referral Summary ---
Author Organization [facility] Address [address] [place] [address] Care Team Providers Care Animal Care Technician Name Role Phone Unavailable Primary Care Provider [...] as needed. 16 tablet 03/29/2024 4:59 PM COMMODITY LEAD 03/29/2024 Active Active Problems Problem Noted Date [...] 07/02/2021 Td adult adsorbed (lf) unspecified 09/05/2008 Social History Tobacco Use Types Packs/Day Years Used Date Smoking Tobacco: Never Smokeless Tobacco: Never Alcohol Use Standard Drinks/Week Comments Not Currently 0 (1 standard drink = 0.6 oz pur e alcohol) [place] Depression Scale Answer Date Recorded [place] Depression Scale Total 2 07/01/2021 The thought [...] Comments Blood Pressure 105/56 03/29/2024 6:45 PM COMMODITY LEAD Pulse 60 03/29/2024 6:45 PM COMMODITY LEAD Temperature 36.5 C (97.7 F) 03/29/2024 6:00 PM COMMODITY LEAD Respiratory Rate 18 03/29/2024 6:45 PM COMMODITY LEAD Oxygen Saturation 98% 03/29/2024 6:45 PM COMMODITY LEAD Inhaled Oxygen Concentration - - Weight 94 kg (207 lb 3.2 oz) 03/29/2024 1:10 PM COMMODITY LEAD Height 162.6 cm (5' 4) 03/29/2024 1:10 PM COMMODITY LEAD Body Mass Index 35.57 03/29/2024 1:10 PM COMMODITY LEAD Plan of Treatment Not on file Procedures Procedure Name Priority Date/Time Associated Diagnosis Comments GLUCOSE, RANDOM STAT 09/29/2015 9:50 PM CDT CYTOLOGY GYNECOLOGICAL Routine 2 11:50 AM CDT Routine adult health maintenance from Last 3 Months or Most Recently Relevant to Health Maintenance Results * Glucose, Serum (09/29/2015 9:50 PM CDT) Glucose 100 70 - 110 mg/dL 09/29/2015 10:[address] [facility] Blood Collection / Unknown 09/29/2015 9:50 PM CDT 09/29/2015 9:54 PM CDT us Brooke Conklin MD CHEMISTRY ORDERABLE Final Result [facility] [address] [place] [address] * CYTOLOGY GYNECOLOGICAL (08/26/2011 11:50 AM CDT) CASING FLUID TENDER CYTOLOGY Normal [facility] Comment: [facility] [address] [facility] [place] [address] CYTOLOGY REPORT Patient Name: BENITA SCHMITT Specimen No: [id number] Location: OP [facility] Age: 21 Sex: F Carlos. Date: 08/26/2011 Med. Rec. #: [id number] : 1990 Received: 08/27/2011 Physician(s): Myra Braun MD Reported: 09/02/2011 SOURCE OF SPECIMEN CERVICAL-THIN PREP (HPV REFLEX) City Driver Screening CLINICAL HISTORY Menstrual History: Regular SPECIMEN ADEQUACY Satisfactory for evaluation. Endocervical/transformation zone component present. INTERPRETATION Negative for intraepithelial lesion or malignant cells. Electronically Signed Out [facility] /djs 09/02/2011 CERVIX UTERI STRUCTURE / Unknown 08/26/2011 11:50 AM CDT 08/27/2011 11:50 AM CDT Myra Braun MD PATHOLOGY/CYTOLOGY ORDERABLE Fi nal Result [facility] [address] [facility] [place] [address] from Last 3 Months or Most Recently Relevant to Health Maintenance Administered Medications Insurance [facility] PMAP/[employer] [place] [employer] Advance Directives For more information, please contact: [phone] * Full Code (Latest Code Status on File) Date Activated Date Inactivated Comments 03/29/2024 1:04 PM 03/30/2024 1:03 AM Question Answer Comments How was code status determined? Patient * Full Code Date Activated Date Inactivated Comments 06/30/2021 7:25 AM 07/02/2021 6:11 PM Question Answer Comments How was code status determined? Patient
--- OUTSIDE RECORDS SUMMARY | 2024-08-04 19:31 | XMS_ITS | Clinical Summary ---
Author Organization [place] Address [facility] [place] [address] Care Team Providers Care Ornamental Metal Worker Helper Name Role Phone Liane Garnica APRN MOVING VAN DRIVER Primary Care Provider [phone] Liane Garnica APRN MOVING VAN DRIVER Unavailable [phone] Allergies No known active allergies Medications rifampin (RIFADIN) 300 MG capsuleIndication s:Latent tuberculosis infection Take 2 capsules (600 mg) by mouth daily. 60 capsule 4 Active Active Problems Problem Noted Date Diagnosed Date Acute reaction to stress 06/24/2018 Vitamin D insufficiency 10/17/2016 Tear meniscus knee, right, subsequent encounter 03/26/2015 Contraception 07/19/2013 Resolved Problems Problem Noted Date Diagnosed Date Resolved Date Fatigue, unspecified type 10/17/2016 Midline low back pain without sciatica 03/26/2015 03/07/2024 Urticaria 07/19/2013 03/07/2024 Overview (01/26/2015): Problem list name updated by automated process. Provider to review Right ovarian cyst 12/20/2012 3 CARDIOVASCULAR SCREENING; LD L GOAL LESS THAN 160 06/25/2012 10/17/2016 Encounters Date Type Department Care Team Description 05/20/2024 MyC Medical Advice [facility] [place] [address] [place] [phone] Annette Coyne MA 05/19/2024 Telephone [facility] [place] [address] [place] [phone] Liane Garnica, BUSINESS CONTINUITY PLANNING DIRECTOR MOVING VAN DRIVER Patient Request from Last 3 Months Immunizations Name Administration Dates Next Due COVID-19 MONOVALENT 12+ (Pfizer) 08/07/2020,06/26 DTAP (<7y) 09/01/1995, 3,08/25/1990,1988,1988,1988 HIB (PRP-T) 09/15/1990 HPV 08/22/2013,07/19/2013 HepB 02/03/2003, 1,07/01/2000,2000 Influenza (IIV3) PF 02/03/2003 Influenza Intranasal Vaccine 06/25/2012 Influenza Vaccine >6 months,quad, PF ,01/16/2021,03/26/2015,2012 Influenza, Split Virus, Triv alent, Pf (Fluzone\Fluarix) 03/07/2024,02/23/2020 MMR (MMRII) 07/02/2021,11/07/1993,09/08/1989 Poliovirus, inactivated (IPV) 11/25/1992 ,02/25/1989,1988,1988 RSV (Abrysvo) 05/28/2023 TD,PF 7+ (Tenivac) 06/25/2012, 9,08/05/2005,2002,09/01/1995 TDAP (Adacel,Boostrix) 04/23/2023,05/15/2021,03/2009 TDAP Vaccine (Adacel) 06/25/2012 Varicella (Varivax) 11/09/2019,02/03/2003 Family History Medical History Relation Comments Asthma Brother Diabetes Father Breast Cancer Maternal Aunt 1 Thyroid Disease Maternal Aunt 1 Breast Cancer Maternal Aunt 2 Heart Surgery Maternal Grandmother Anxiety Disorder Mother Diabetes Mother Gynecology Mother Hypertension Mother Thyroid Disease Mother 40s, Cancer Paternal Grandfather Alcohol/Drug No family hx of Allergies No family hx of Alzheimer Disease No family hx of Anesthesia Reaction No family hx of Arthritis No family hx of Blood Disease No family hx of C.A.D. No family hx of Cancer - colorectal No family hx of Cardiovascular No family hx of Cerebrovascular Disease No family hx of Circulatory No family hx of Congenital Anomalies No family hx of Connective Tissue Disorder No family hx of Depression No family hx of Endocrine Disease No family hx of Eye Disorder No family hx of Family History Negative No family hx of Genetic Disorder No family hx of Genitourinary Problems No family hx of Heart Disease No family hx of Lipids No family hx of Musculoskeletal Disorder No family hx of Neurologic Disorder No family hx of Obesity No family hx of Osteoporosis No family hx of Prostate Cancer No family hx of Psychotic Disorder No family hx of Respiratory No family hx of Relation Status Comments Brother Alive Father Alive Maternal Aunt 1 Alive Maternal Aunt 2 Alive Maternal Grandfather killed Maternal Grandmother Alive Mother Alive Paternal Grandfather cancer Paternal Grandmother heart probl ems Sister Alive Son Alive Social History Tobacco Use Types Packs/Day Years [...] on file Legal Sex Female 9:52 AM FITNESS INSTRUCTOR Gender Identity Not on file Sexual Orientation Not on file 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 Not on file Not on file Last Filed Vital Signs Vital Sign Reading Time Taken Comments Blood Pressure 106/60 03/07/2024 1:16 PM FITNESS INSTRUCTOR Pulse 63 03/07/2024 1:16 PM FITNESS INSTRUCTOR Temperature 36.5 C (97.7 F) 03/07/2024 1:16 PM FITNESS INSTRUCTOR Respiratory Rate 16 01/26/2024 4:21 PM CDT Oxygen Saturation 97% 03/07/2024 1:16 PM FITNESS INSTRUCTOR Inhaled Oxygen Concentration - - Weight 93.9 kg (207 lb) 03/07/2024 1:16 PM FITNESS INSTRUCTOR Height 162.6 cm (5' 4) 03/07/2024 1:16 PM FITNESS INSTRUCTOR Body Mass Index 35.53 03/07/2024 1:16 PM FITNESS INSTRUCTOR Plan of Treatment Health Maintenance Due Date Last Done Comments HPV IMMUNIZATION (3 - 3-dose series) 01/19/2014 08/22/2013, 07/19/2013 YEARLY PREVENTIVE VISIT 12/18/2018 12/19/19 18, 10/10/2016, 07/19/2013, Additional history exists COVID-19 Vaccine ( season) 2023 08/07/2020, 07/17/2020 PHQ-2 (once per calendar year) 2024 03/07/2024, 07/13/2018, 06/24/2018, Additional history exists ANNUAL REVIEW OF HM ORDERS 03/10/2025 03/10/2024 PAP 09/17/2026 09/18/2023, 08/26, 10/10/2016, Additional history exists DIABETES SCREENING 01/25/2027 01/26/2024, 0 08/31/2018, 12/18/2017, Additional history exists ADVANCE CARE PLANNING 03/07/2029 03/07/2024, 024 DTAP/TDAP/TD IMMUNIZATION (11 - Td or Tdap) 04/23/2033 04/23/2023, 05/15/2021, 06/25/2012, Additional history exists ZOSTER IMMUNIZATION (1 of 2) 2038 HEPATITIS B IMMUNIZATION Completed 003, 08/12/2000, 07/01/2000, Additional history exists HEPATITIS C SCREENING Completed 04/11/2013 HIV SCREENING Completed 12/03/2020, 11/26, 04/11/2013, Additional history exists RSV VACCINE Discontinued 05/28/2023 INFLUENZA VACCINE Completed 03/07/2024, , 01/16/2021, Additional history exists MENINGITIS IMMUNIZATION Aged Out No l onger eligible based on patient's age to complete this topic Pneumococcal Vaccine: Pediatrics (0 to 5 Years) and At-Risk Patients (6 to 49 Years) Aged Out No longer eligible based on patient's age to complete this topic Procedures Procedure Name Priority Date/Time Associated Diagnosis Comments COMPREHENSIVE METABOLIC PANEL STAT 01/26/2024 4:53 PM CDT HIV ANTIGEN ANTIBODY COMBO Routine 12/18/2017 12:35 PM CDT Screen for STD (sexually transmitted disease) PAP IMAGED THIN LAYER SCREEN Routine 10/10/2016 4:58 PM CDT Screening for malignant neoplasm of cervix HEPATITIS C ANTIBODY Routine 04/11/2013 8:26 AM FITNESS INSTRUCTOR Screen for STD (sexually transmitted disease) from Last 3 Months or Most Recently Relevant to Health Maintenance Results * Comprehensive metabolic panel (01/26/2024 4:53 PM CDT) Sodium 137 135 - 145 mmol/L 01/26/2024 5:15 PM CDT [facility] Potassium 3.8 3.4 - 5.3 mmol/L 01/26/2024 5:15 PM CDT [facility] Carbon Dioxide (CO2) 24 22 - 29 mmol/L 01/26/2024 5:15 PM CDT [facility] Anion Gap 11 7 - 15 mmol/L 01/26/2024 5:15 PM CDT [facility] Urea Nitrogen 11.7 6.0 - 20.0 mg/dL 01/26/2024 5:15 PM CDT [facility] Creatinine 0.60 0.51 - 0.95 mg/dL 01/26/2024 5:15 PM CDT [facility] GFR Estimate >90 >60 mL/min/1.7 3m2 01/26/2024 5:15 PM CDT [facility] Comment:eGFR calculated usin 2020 CKD-EPI equation. Calcium 9.2 8.8 - 10.4 mg/dL 01/26/2024 5:15 PM CDT [facility] Comment:Reference intervals for this test were updated on 11/10/2023 to reflect our healthy population more accurately. There may be differences in the flagging of prior results with similar values performed with this method. Those prior results can be interpreted in the context of the updated reference intervals. Chloride 102 98 - 107 mmol/L 01/26/2024 5:15 PM CDT [facility] Glucose 97 70 - 99 mg/dL 01/26/2024 5:15 PM CDT [facility] Alkaline Phosphatase 136 40 - 150 U/L 01/26/2024 5:15 PM CDT [facility] AST 31 0 - 45 U/L 01/26/2024 5:15 PM CDT [facility] ALT 40 0 - 50 U/L 01/26/2024 5:15 PM CDT [facility] Protein Total 7.7 6.4 - 8.3 g/dL 01/26/2024 5:15 PM CDT [facility] Albumin 4.4 3.5 - 5.2 g/dL 01/26/2024 5:15 PM CDT [facility] Bilirubin Total 0.2 <=1.2 mg/dL 01/26/2024 5:15 PM CDT [facility] Blood BLOOD SPECIMEN / Unknown Venipuncture / Unknown 01/26/2024 4:53 PM CDT 01/26/2024 4:57 PM CDT us Janee Parra PA-C LAB - BLOOD ORDERABLES Final Result [facility] [address] [facility] [address] (Main level, no room number) [place] [address] * HIV Antigen Antibody Combo (12/18/2017 12:35 PM CDT) HIV Antigen Antibody Combo Nonreactive NR^Nonrea ctive 12/21/2017 10:45 AM CDT [facility] Comment:HIV-1 p24 Ag & HIV-1 /HIV-2 Ab Not Detected Blood specimen (specimen) 12/18/2017 12:35 PM CDT 12/18/2017 12:36 PM CDT us Brooke Jansen PA-C LAB - BLOOD ORDERABLES F inal Result [facility] [address] [place] [address] * Pap imaged thin layer screen reflex to HPV if ASCUS - recommend age 25 - 29 (10/10/2016 4:58 PM CDT) PAP BOB Piña Report Patient Name: BENITA SCHMITT MR#: [id number] Specimen #: [id number] Collected: 10/10/2016 Received: 10/13/2016 Reported: 10/15/2016 08:44 Ordering Phy(s): BRIDGET GERBER For improved result formatting, select 'View Enhanced Report Format' under Linked Documents section. SPECIMEN/STAIN PROCESS: Pap imaged thin layer prep screening (Surepath, FocalPoint with guided screening) Pap-Cyto x 1, Pap with reflex to HPV if ASCUS x 1 SOURCE: Endocervical Pap imaged thin layer prep screening (Surepath, FocalPoint with guided screening) SPECIMEN ADEQUACY: Satisfactory for evaluation. -Transformation zone component present. CYTOLOGIC INTERPRETATION: Negative for intraepithelial lesion or malignancy Electronically signed out by: OC Anguiano (ASCP) Processed and screened at [facility] CLINICAL HISTORY: Previous normal pap Date of Last Pap: 06/25/2012, Papanicolaou Test Limitations: Cervical cytology is a screening test with limited sensitivity; regular screening is critical for cancer prevention; Pap tests are primarily effective for the diagnosis/preventi on of squamous cell carcinoma, not adenocarcinomas or other cancers. TESTING LAB LOCATION: [facility], [address] [place] [address] COLLECTION SITE: Client: [facility] Location: [facility] ([facility]) [facility] Cytologic material (specimen) 10/10/2016 4:58 PM CDT 10/13/2016 1:43 PM CDT Bridget Gerber APRN MOVING VAN DRIVER LAB - OPTIME CLINICAL SPECIMEN Final Result [facility] * Hepatitis C antibody (04/11/2013 8:26 AM FITNESS INSTRUCTOR) Hepatitis C Antibody Negative [facility] Blood specimen (specimen) 04/11/2013 8:26 AM FITNESS INSTRUCTOR 04/11/2013 8:27 AM FITNESS INSTRUCTOR Liane Garnica APRN MOVING VAN DRIVER LAB - BLOOD ORDERABLES Fin al Result [facility] [address] [place] [address], [facility] from Last 3 Months or Most Recently Relevant to Health Maintenance Insurance BLUE [employer]VANTAGE [place] [employer] ADVANTAGE [place] [employer] [place] [id number] [facility] FAMILY [id number] [address] [facility] [place] [address] Care Teams Ornamental Metal Worker Helper Relationship Specialty Start Date End Date Liane Garnica APRN MOVING VAN DRIVER [address] [place] [address] PCP - General Family Medicine 03/07/24 Liane Garnica APRN MOVING VAN DRIVER [address] [place] [id number] Assigned PCP 03/19/24
== END 2024-08-04 19:05 | disposition home or self-care (01) ==
PROVIDERS: Emergency Provider Emergency Medicine Emergency Medical Services
DX: J06.9 Acute upper respiratory infection, unspecified (principal); R07.9 Chest pain, unspecified
CPT/HCPCS: 36415; 71046; 76604; 76705; 80048; 84484; 85025; 87631; 93005; 93308; 96374; 96375; 99284; 99285; J1885; J2405; J7030

== ENCOUNTER 2024-08-18 19:48 | Emergency (ER) | payer BC, SELFPAY ==
--- OUTSIDE RECORDS SUMMARY | 2024-08-18 19:50 | XMS_ITS | Referral Summary ---
Author Organization [facility] Address [address] [place] [address] Care Team Providers Care Real Estate Sales Agent Name Role Phone Unavailable Primary Care Provider [...] as needed. 16 tablet 03/29/2024 4:59 PM BOW MAKER CUSTOM 03/29/2024 Active Active Problems Problem Noted Date [...] drink = 0.6 oz pur e alcohol) [place] Depression Scale Answer Date Recorded [place] Depression Scale Total 2 07/01/2021 The thought [...] Comments Blood Pressure 105/56 03/29/2024 6:45 PM BOW MAKER CUSTOM Pulse 60 03/29/2024 6:45 PM BOW MAKER CUSTOM Temperature 36.5 C (97.7 F) 03/29/2024 6:00 PM BOW MAKER CUSTOM Respiratory Rate 18 03/29/2024 6:45 PM BOW MAKER CUSTOM Oxygen Saturation 98% 03/29/2024 6:45 PM BOW MAKER CUSTOM Inhaled Oxygen Concentration - - Weight 94 kg (207 lb 3.2 oz) 03/29/2024 1:10 PM BOW MAKER CUSTOM Height 162.6 cm (5' 4) 03/29/2024 1:10 PM BOW MAKER CUSTOM Body Mass Index 35.57 03/29/2024 1:10 PM BOW MAKER CUSTOM Plan of Treatment Not on file Procedures Procedure Name Priority Date/Time Associated Diagnosis Comments GLUCOSE, RANDOM STAT 09/29/2015 9:50 PM CDT CYTOLOGY GYNECOLOGICAL Routine 2 11:50 AM CDT Routine adult health maintenance from Last 3 Months or Most Recently Relevant to Health Maintenance Results * Glucose, Serum (09/29/2015 9:50 PM CDT) Glucose 100 70 - 110 mg/dL 09/29/2015 10:20 PM CDT [facility] Blood Collection / Unknown 09/29/2015 9:50 PM CDT 09/29/2015 9:54 PM CDT us Brooke Conklin MD CHEMISTRY ORDERABLE Final Result [facility] [address] [place] [address] * CYTOLOGY GYNECOLOGICAL (08/26/2011 11:50 AM CDT) MARKET DEVELOPMENT ANALYST CYTOLOGY Normal [facility] Comment: [facility] Surgical Pathology Laboratory [address] [facility] [place] [address] CYTOLOGY REPORT Patient Name: BENITA SCHMITT Specimen No: [id number] Location: OP [facility] Age: 21 Sex: F Carlos. Date: 08/26/2011 Med. Rec. #: [id number] : 1990 Received: 08/27/2011 Physician(s): Myra Braun MD Reported: 09/02/2011 SOURCE OF SPECIMEN CERVICAL-THIN PREP (HPV REFLEX) Porcelain Turner Screening CLINICAL HISTORY Menstrual History: Regular SPECIMEN ADEQUACY Satisfactory for evaluation. Endocervical/transformation zone component present. INTERPRETATION Negative for intraepithelial lesion or malignant cells. Electronically Signed Out [facility] /djs 09/02/2011 CERVIX UTERI STRUCTURE / Unknown 08/26/2011 11:50 AM CDT 08/27/2011 11:50 AM CDT Myra Braun MD PATHOLOGY/CYTOLOGY ORDERABLE Fi nal Result [facility] [address] [facility] [place] [address] from Last 3 Months or Most Recently Relevant to Health Maintenance Administered Medications Insurance [facility]1983 CARE [facility] PMAP/MNCARE [employer] FAMILY Advance Directives For more information, please contact: [phone] * Full Code (Latest Code Status on File) Date Activated Date Inactivated Comments 03/29/2024 1:04 PM 03/30/2024 1:03 AM Question Answer Comments How was code status determined? Patient * Full Code Date Activated Date Inactivated Comments 06/30/2021 7:25 AM 07/02/2021 6:11 PM Question Answer Comments How was code status determined? Patient
--- OUTSIDE RECORDS SUMMARY | 2024-08-18 19:50 | XMS_ITS | Encounter Summary ---
Author Organization [place] Address [facility] [place] [address] Care Team Providers Care Lotteries Agent Name Role Phone Liane Garnica APRN QUALITY ASSURANCE TECHNICIAN Primary Care Provider [phone] Liane Garnica APRN QUALITY ASSURANCE TECHNICIAN Unavailable [phone] Reason for Visit * Reason Onset Date Comments Patient Request 05/19/2024 Encounter Details Date Type Department Care Team (Late st Contact Info) Description 05/19/2024 Telephone [facility] [address] [address] [place] [address] Liane Garnica APRN QUALITY ASSURANCE TECHNICIAN [address] [place], [place] [id number] Patient Request Social History Tobacco Use Types [...] on file Legal Sex Female 9:52 AM DRAPERY EXAMINER Gender Identity Not on file Sexual Orientation Not on file 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 Patient hasmoved and wants to know what she should do with her medication or care. What are your questions or concerns: contact patient Date of last appointment with provider: na Could we send this information to you in [employer] or would you prefer to receive a phone call?: Patient would prefer a phone call Okay to leave a detailed message?: Yes at Cell number on file: Telephone Information: ERY EXAMINER documented in this encounter Plan of Treatment Not on file documented as of this encounter Visit Diagnoses Not on filedocumented in this encounter Additional Health Concerns Assessment Noted Time PHQ-9 Depression Total Score: 16 019 9:14 AM CDT documented as of this encounter Care Teams Lotteries Agent Relationship Specialty Start Date End Date Liane Garnica APRN QUALITY ASSURANCE TECHNICIAN [address] [place] [address] PCP - General Family Medicine 03/07/24 Liane Garnica APRN QUALITY ASSURANCE TECHNICIAN [address] [place] [address] Assigned PCP 03/19/24 documented as of this encounter
--- OUTSIDE RECORDS SUMMARY | 2024-08-18 19:50 | XMS_ITS | Encounter Summary ---
Author Organization [place] Address [address] [facility] [place] [address] Care Team Providers Care Finisher Accordion Name Role Phone Eboni Garrett MD Primary Care Provider [phone] Brooke Jansen PA-C Unavailable [phone] No Ref-Primary, Physician Primary Care Provider Liane Garnica APRN GLOVE MAKER Primary Care Provider [phone] Liane Garnica APRN GLOVE MAKER Unavailable [phone] Encounter Details Date Type Department Care Team (Late st Contact Info) Description 07/13/2018 [facility] Extended Documentation [facility] [address] [address] Neyda Watson, PhD [address] [place] [address] Social History Tobacco Use Types Packs/Day Years Used Date Smoking Tobacco: Never Smokeless Tobacco: Never Alcohol Use Standard Drinks/Week Comments No 0 (1 standard drink = 0.6 oz pur e alcohol) PHQ-2 Answer Date Recorded PHQ-2 Score 6 06/24/2018 Comments No Sex and Gender Information Value Date Recorded Sex Assigned at Not on file Legal Sex Female 9:52 AM MORPHOLOGIST Gender Identity Not on file Sexual Orientation [...] documented as of this encounter Care Teams Finisher Accordion Relationship Specialty [place] [address] [place] [address] PCP - General Family Practice 04/04/13 01/25/24 No Ref-Primary, Physician PCP - General 01/26/24 03/06/24 Liane Garnica APRN GLOVE MAKER [address] [place] [address] PCP - General Family Medicine 03/07/24 Brooke Jansen PA-C [address] [place] [address] Assigned PCP 12/27/17 06/29/21 Liane Garnica APRN GLOVE MAKER [address] [place] [address] Assigned PCP 03/19/24 documented as of this encounter
--- OUTSIDE RECORDS SUMMARY | 2024-08-18 19:50 | XMS_ITS | Encounter Summary ---
Author Organization [place] Address [facility] [place] [address] Care Team Providers Care Reliability Technicians Name Role Phone Eboni Garrett MD Primary Care Provider [phone] Brooke Jansen-C Unavailable [phone] Brooke JansenC Unavailable [phone] No Ref-Primary, Physician Primary Care Provider Liane Garnica APRN BUSINESS MAIL ENTRY CLERK Primary Care Provider + [phone] Liane Garnica APRN BUSINESS MAIL ENTRY CLERK Unavailable [phone] Reason for Visit * Reason Onset Date Comments Results 10/17/2016 Encounter Details Date Type Department Care Team (Late st Contact Info) Description 10/17/[address] [place] [phone] Bridget Gerber APRN BUSINESS MAIL ENTRY CLERK [address] [place] [address] Results Social History Tobacco Use Types Packs/Day [...] on file Legal Sex Female 9:52 AM PRACTICING UROLOGIST Gender Identity Not on file Sexual Orientation [...] appointment. Patient verbalized understanding. Eboni Ortega CMA ([facility]) * Telephone Encounter - Karina Skinner - [...] after that. ??[facility]. Bridget Gerber NP-C documented in this encounter Plan of Treatment Not on file documented as of this encounter Visit Diagnoses Not on filedocumented in this encounter Care Teams Reliability Technicians Relationship Specialty [place] [address] [place] [address] PCP - General Family Practice 04/04/13 01/25/24 Brooke Jansen PA-C [address] [place] [address] PCP - Assigned PCP 12/27/17 06/29/18 No Ref-Primary, Physician PCP - General 01/26/24 03/06/24 Liane Garnica APRN BUSINESS MAIL ENTRY CLERK [address] [place] [address] PCP - General Family Medicine 03/07/24 Brooke Jansen PA-C [address] [place] [address] Assigned PCP 12/27/17 06/29/21 Liane Garnica APRN BUSINESS MAIL ENTRY CLERK [address] [place] [address] Assigned PCP 03/19/24 documented as of this encounter
--- OUTSIDE RECORDS SUMMARY | 2024-08-18 19:50 | XMS_ITS | Encounter Summary ---
Author Organization [place] Address [facility] [place] [address] Care Team Providers Care Sock Liner Name Role Phone Liane Garnica APRN, CNP Primary Care Provider [phone] Liane Garnica APRN PROJECTOR OPERATOR Unavailable [phone] Encounter Details Date Type Department Care Team (Late st Contact Info) Description 05/20/2024 [facility] Medical Advice [facility] [place] [address] [address] [facility] [place] [phone] [place] Social History Tobacco Use Types Packs/Day Years [...] on file Legal Sex Female 9:52 AM URBAN DESIGN CONSULTANT Gender Identity Not on file Sexual Orientation [...] documented as of this encounter Care Teams Sock Liner Relationship Specialty Start Date End Date Liane Garnica APRN CNP [address] [facility] [place] [address] PCP - General Family Medicine 03/07/24 Liane Garnica, POWER HOUSE CONTROL ROOM OPERATOR PROJECTOR OPERATOR [address] [place] [address] Assigned PCP 03/19/24 documented as of this encounter
--- OUTSIDE RECORDS SUMMARY | 2024-08-18 19:50 | XMS_ITS | Clinical Summary ---
Author Organization [facility] Address [address] [place] [address] Care Team Providers Care Commercial Truck Driver Name Role Phone Unavailable Primary Care Provider [...] as needed. 16 tablet 03/29/2024 4:59 PM DETONATOR MAKER 03/29/2024 Active Active Problems Problem Noted Date [...] drink = 0.6 oz pur e alcohol) [place] Depression Scale Answer Date Recorded [place] Depression Scale Total 2 07/01/2021 The thought [...] Comments Blood Pressure 105/56 03/29/2024 6:45 PM DETONATOR MAKER Pulse 60 03/29/2024 6:45 PM DETONATOR MAKER Temperature 36.5 C (97.7 F) 03/29/2024 6:00 PM DETONATOR MAKER Respiratory Rate 18 03/29/2024 6:45 PM DETONATOR MAKER Oxygen Saturation 98% 03/29/2024 6:45 PM DETONATOR MAKER Inhaled Oxygen Concentration - - Weight 94 kg (207 lb 3.2 oz) 03/29/2024 1:10 PM DETONATOR MAKER Height 162.6 cm (5' 4) 03/29/2024 1:10 PM DETONATOR MAKER Body Mass Index 35.57 03/29/2024 1:10 PM DETONATOR MAKER Plan of Treatment Health Maintenance Due Date [...] - 110 mg/dL 09/29/2015 10:20 PM CDT [facility] Blood Collection / Unknown 09/29/2015 9:50 PM CDT 09/29/2015 9:54 PM CDT us Brooke Conklin MD CHEMISTRY ORDERABLE Final Result [facility] [address] [place] [address] * CYTOLOGY GYNECOLOGICAL (08/26/2011 11:50 AM CDT) ARTIFICIAL BREEDING DISTRIBUTOR CYTOLOGY Normal [facility] Comment: [facility] Surgical Pathology Laboratory [address] [place] [phone] CYTOLOGY REPORT Patient Name: BENITA SCHMITT Specimen No: [id number] Location: OP [facility] Age: 21 Sex: F Carlos. Date: 08/26/2011 Med. Rec. #: [id number] : 1990 Received: 08/27/2011 Physician(s): Myra Braun MD Reported: 09/02/2011 SOURCE OF SPECIMEN CERVICAL-THIN PREP (HPV REFLEX) Church Organist Screening CLINICAL HISTORY Menstrual History: Regular SPECIMEN ADEQUACY Satisfactory for evaluation. Endocervical/transformation zone component present. INTERPRETATION Negative for intraepithelial lesion or malignant cells. Electronically Signed Out [facility] /djs 09/02/2011 CERVIX UTERI STRUCTURE / Unknown 08/26/2011 11:50 AM CDT 08/27/2011 11:50 AM CDT Myra Braun MD PATHOLOGY/CYTOLOGY ORDERABLE Fi nal Result [facility] [address] [place] [address] from Last 3 Months or Most Recently Relevant to Health Maintenance Insurance [facility] [place] [id number] [facility] Advance Directives For more information, please contact: [phone] * Full Code (Latest Code Status on File) Date Activated Date Inactivated Comments 03/29/2024 1:04 PM 03/30/2024 1:03 AM Question Answer Comments How was code status determined? Patient * Full Code Date Activated Date Inactivated Comments 06/30/2021 7:25 AM 07/02/2021 6:11 PM Question Answer Comments How was code status determined? Patient
--- OUTSIDE RECORDS SUMMARY | 2024-08-18 19:50 | XMS_ITS | Clinical Summary ---
Author Organization [place] Address [facility] [place] [address] Care Team Providers Care Manager Wholesale Name Role Phone Liane Garnica APRN SUPERINTENDENT DRILLING AND PRODUCTION Primary Care Provider [phone] Liane Garnica APRN SUPERINTENDENT DRILLING AND PRODUCTION Unavailable [phone] Allergies No known active allergies Medications rifampin [...] Date Type Department Care Team Description 05/20/2024 [facility] Medical Advice [facility] [address] [facility] [place] [address] Annette Coyne MA from Last 3 Months Immunizations Name Administration [...] on file Legal Sex Female 9:52 AM HEALTH SCIENCES DEPARTMENT CHAIR Gender Identity Not on file Sexual Orientation Not on file 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 Not on file Not on file Last Filed Vital Signs Vital Sign Reading Time Taken Comments Blood Pressure 106/60 03/07/2024 1:16 PM HEALTH SCIENCES DEPARTMENT CHAIR Pulse 63 03/07/2024 1:16 PM HEALTH SCIENCES DEPARTMENT CHAIR Temperature 36.5 C (97.7 F) 03/07/2024 1:16 PM HEALTH SCIENCES DEPARTMENT CHAIR Respiratory Rate 16 01/26/2024 4:21 PM CDT Oxygen Saturation 97% 03/07/2024 1:16 PM HEALTH SCIENCES DEPARTMENT CHAIR Inhaled Oxygen Concentration - - Weight 93.9 kg (207 lb) 03/07/2024 1:16 PM HEALTH SCIENCES DEPARTMENT CHAIR Height 162.6 cm (5' 4) 03/07/2024 1:16 PM HEALTH SCIENCES DEPARTMENT CHAIR Body Mass Index 35.53 03/07/2024 1:16 PM HEALTH SCIENCES DEPARTMENT CHAIR Plan of Treatment Health Maintenance Due Date [...] HEPATITIS C ANTIBODY Routine 04/11/2013 8:26 AM HEALTH SCIENCES DEPARTMENT CHAIR Screen for STD (sexually transmitted disease) from [...] PM CDT [facility] Comment:eGFR calculated usin g 2020 CKD-EPI equation. Calcium 9.2 8.8 - [...] 4:53 PM CDT 01/26/2024 4:57 PM CDT Janee Parra PA-C LAB - BLOOD ORDERABLES Final Result [facility] [address] [facility] (Main level, no room number) [place] [address] * HIV Antigen Antibody Combo (12/18/2017 12:35 PM CDT) HIV Antigen Antibody Combo Nonreactive NR^Nonrea ctive 12/21/2017 10:45 AM CDT [facility] Comment:HIV-1 p24 Ag & HIV-1 /HIV-2 Ab Not Detected Blood specimen (specimen) 12/18/2017 12:35 PM CDT 12/18/2017 12:36 PM CDT Brooke Jansen PA-C LAB - BLOOD ORDERABLES F inal Result [facility] [address] [place] [address] * Pap imaged thin layer screen reflex to HPV if ASCUS - recommend age 25 - 29 (10/10/2016 4:58 PM CDT) PAP BOB Piña Report Patient Name: TOSHA SCHMITT MR#: [id number] Specimen #: [id number] Collected: 10/10/2016 Received: 10/13/2016 Reported: 10/15/2016 08:44 [...] OC Anguiano (ASCP) Processed and screened at [facility], [facility] CLINICAL HISTORY: Previous normal pap Date of Last Pap: 06/25/2012, Papanicolaou Test Limitations: Cervical cytology is a screening test with limited sensitivity; regular screening is critical for cancer prevention; Pap tests are primarily effective for the diagnosis/preventi on of squamous cell carcinoma, not adenocarcinomas or other cancers. TESTING LAB LOCATION: [address] [phone] COLLECTION SITE: Client: [facility]ologic material (specimen) 10/10/2016 4:58 PM CDT 10/13/2016 1:43 PM CDT Bridget Gerber APRN SUPERINTENDENT DRILLING AND PRODUCTION LAB - OPTIME CLINICAL SPECIMEN Final Result Performing Organization Address City/[facility]/ZIP Co de Phone Number COPATH * Hepatitis C antibody (04/11/2013 8:26 AM HEALTH SCIENCES DEPARTMENT CHAIR) Hepatitis C Antibody Negative [facility] Blood specimen (specimen) 04/11/2013 8:26 AM HEALTH SCIENCES DEPARTMENT CHAIR 04/11/2013 8:27 AM HEALTH SCIENCES DEPARTMENT CHAIR Liane Garnica APRN SUPERINTENDENT DRILLING AND PRODUCTION LAB - BLOOD ORDERABLES Fin al Result [facility] [address] [place], [place] [id number] [place] [address] from Last 3 Months or Most Recently Relevant to Health Maintenance Insurance [employer] [employer]URANCE [facility] [id number] [place] [id number] Care Teams Manager Wholesale Relationship Specialty Start Date End Date Liane Garnica APRN SUPERINTENDENT DRILLING AND PRODUCTION [address] [place] [address] PCP - General Family Medicine 03/07/24 Liane Garnica APRN SUPERINTENDENT DRILLING AND PRODUCTION [address] [place] [address] Assigned PCP 03/19/24
[2024-08-18 19:57] VITALS: BP 105/74; PULSE 89; RESP 18; TEMP 37.5; O2SAT 99; BMI 35.2
--- NOTE | 2024-08-18 19:59 | ED.GENADULT ---
HPI - General Adult General Time Seen by Provider: 20:00 Date Seen: 08/18/24 Chief complaint: Sore Throat Stated complaint: sore throat Time Seen by Provider: 08/18/24 19:55 Source: patient and RN notes reviewed Mode of arrival: ambulatory Limitations: no limitations History of Present Illness HPI narrative: This 34yo female is coming in with illness with fever. 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 She has had fevers up to 101.2F, last took ibuprofen at 5pm tonight. She has had nausea but no vomiting or diarrhea. She has sore throat, coughing, bilateral ear pain with this. Related Data Previous Rx's ?Medication ?Instructions ?Recorded acetaminophen 300 mg-codeine 30 mg 1 tab PO Q6H PRN pain #15 tabs 08/04/24 tablet Allergies Allergy/AdvReac Type Severity Reaction Status Date / Time No Known Drug Allergies Allergy Verified 08/18/24 19:59 Review of Systems Narrative: As per HPI. 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 [employer] What is your current living situation?: I presently have a place to live Problems where you live: no known problems In the past 12 months, utilities in danger of being shut off: no In past 12 months, lack of transportation kept you from medical appts, meetings, work, or getting things needed for daily living: no In the past 12 mos, have been you worried that your food would run out before you had money to buy more?: never true In the past 12 mos, the food you bought just didn't last and you didn't have money to buy more?: never true Smoking Status: Never smoker Second hand tobacco smoke exposure: No How often do you have a drink containing alcohol: never AUDIT-C Alcohol total score: 0 Non-prescribed substance use: denies use How often does anyone, including family, friends and others, physically hurt you: never How often does anyone, including family, friends and others, insult or talk down to you: never How often does anyone, including family, friends and others, threaten you with harm: never How often does anyone, including family, friends and others, scream or curse at you: never Exam Const: Vital Signs, click to edit/add: Vital Signs - 24 hr 08/18/24 19:57 Temperature 99.5 F Pulse Rate [Right Pulse Oximeter] 89 Respiratory Rate 18 Blood Pressure [Ri ght Upper Arm] 105/74 Pulse Oximetry 99 Oxygen Delivery Me thod Room Air This 34-year-old female who is alert, interactive, no apparent distress. She has some mild hoarseness but is able speak in complete sentences, no stridor. Pupils are equal, sclera clear, conjugate gaze come symmetrical facial function. TMs translucent, no evidence of infection, oropharynx without any significant erythema, mucosa is well hydrated, no exudates noted. Neck is supple, no adenopathy. Lungs are clear, good air entry, no wheezing or crackles, no tachypnea, no accessory muscle use. CV regular rate and rhythm, no murmur, normal S1-S2. Documenting provider has reviewed patient's vital signs: yes Course Course ED Course: With both mom and her child subsequently becoming sick, highly suspect a viral upper respiratory infection. Nursing staff did collect strep and triple viral swab appropriately in triage. Will await that result. Reevaluation(s) Time of Reevaluation #1: 20:47 Reevaluation #1: Reviewed with Mom that they both have influenza B. She started with some symptoms yesterday but really did not feel really sick until today. We did discuss Tamiflu, she really would like to take it. We will give her the treatment dose from [facility], 75 mg p.o. b.i.d. x5 days, start tonight. Vital Signs Vital signs: Initial Vital Signs Respiratory Effort Normal, Spontaneous, Non-Labored 08/18/24 19:56 Respiratory Depth Normal 08/18/24 19:56 Respiratory Pattern Normal 08/18/24 19:56 Vital Signs Temperature 99.5 F 08/18/24 19:57 Pulse Rate 89 08/18/24 19:57 Respiratory Rate 18 08/18/24 19:57 Blood Pressure 105/74 08/18/24 19:57 Pulse Oximetry 99 08/18/24 19:57 Oxygen Delivery Method Room Air 08/18/24 19:57 Temperature 99.5 F 08/18/24 19:57 Pulse Rate 89 08/18/24 19:57 Respiratory Rate 18 08/18/24 19:57 Blood Pressure 105/74 08/18/24 19:57 Pulse Oximetry 99 08/18/24 19:57 Oxygen Delivery Method Room Air 08/18/24 19:57 Medical Decision Making Lab Data Lab results reviewed: Yes I reviewed the patient's lab results Labs: Lab Results 08/18/24 Range/Units 19:55 SARS-CoV-2 (PCR) Negative SARS-CoV-2 (Negative) Influenza Type A (PCR) Negative PCR FLU A (Negative) Influenza Type B (PCR) POSITIVE PCR FLU B A (Negative) RSV (PCR) Negative PCR RSV (Negative) Group A Strep DNA NOT DETECTED (Not Detectd) Discharge Plan Discharge Clinical Impression: Influenza B Patient Disposition: Home, Self-Care Condition: Stable Instructions: Influenza (ED) Additional Instructions: Start Tamiflu tonight and take as prescribed. Can use Tylenol and ibuprofen per bottle directions as needed for fever and symptom control. Drink plenty of fluids. If you are not improving over the next week, feel you are worsening at any point or have other concerns, please seek re-evaluation. You need to quarantine from public until you are fever free off fever medications for 24 hours and need to be improving from the illness as well. Activity Level: No Restrictions Prescriptions: No Action acetaminophen-codeine 300-30 mg tablet 1 tab PO Q6H PRN (Reason: pain) Qty: 15 0RF Follow Up/Referrals: Provider,Not a Local [Primary Care Provider] - Stand Alone Forms: MyHealth Info Instructions
[2024-08-18 20:29] LABS: Strep A DNA Probe* NOT DETECTED (Not Detectd)
[2024-08-18 20:42] LABS: PCR FLU A Negative PCR FLU A (Negative); PCR FLU B POSITIVE PCR FLU B (Negative); PCR RSV Negative PCR RSV (Negative); SARS PCR* Negative SARS-CoV-2 (Negative)
[2024-08-18 21:02] VITALS: BP 111/71; PULSE 85; RESP 18; TEMP 37.5; O2SAT 99
[2024-08-18 21:03] VITALS: BP 111/71; PULSE 85; RESP 18; TEMP 37.5
--- OUTSIDE RECORDS SUMMARY | 2024-08-18 21:03 | XMS_ITS | Encounter Summary ---
Author Organization [place] Address [facility] [place] [address] Care Team Providers Care Renewable Energy Broker Name Role Phone Liane Garnica APRN, CNP Primary Care Provider [phone] Liane Garnica APRN SOFTWARE QUALITY TEST ENGINEER Unavailable [phone] Encounter Details Date Type Department Care Team (Late st Contact Info) Description 05/20/2024 [facility] Medical Advice [facility] [place] [address] [facility] [place] [id number] Annette CoyneARENA, MA Social History Tobacco Use Types Packs/Day [...] on file Legal Sex Female 9:52 AM GAS FLOW REGULATOR Gender Identity Not on file Sexual Orientation [...] documented as of this encounter Care Teams Renewable Energy Broker Relationship Specialty Start Date End Date Liane Garnica APRN CNP [address] [facility] [place] [address] PCP - General Family Medicine 03/07/24 Liane Garnica, COPY OPERATOR SOFTWARE QUALITY TEST ENGINEER [address] [place] [address] Assigned PCP 03/19/24 documented as of this encounter
--- OUTSIDE RECORDS SUMMARY | 2024-08-18 21:03 | XMS_ITS | Referral Summary ---
Author Organization [facility] Address [address] [place] [address] Care Team Providers Care Cartographic Aide Name Role Phone Unavailable Primary Care Provider [...] as needed. 16 tablet 03/29/2024 4:59 PM CHUCK WAGON COOK 03/29/2024 Active Active Problems Problem Noted Date [...] drink = 0.6 oz pur e alcohol) [place] Depression Scale Answer Date Recorded [place] Depression Scale Total 2 07/01/2021 The thought [...] Comments Blood Pressure 105/56 03/29/2024 6:45 PM CHUCK WAGON COOK Pulse 60 03/29/2024 6:45 PM CHUCK WAGON COOK Temperature 36.5 C (97.7 F) 03/29/2024 6:00 PM CHUCK WAGON COOK Respiratory Rate 18 03/29/2024 6:45 PM CHUCK WAGON COOK Oxygen Saturation 98% 03/29/2024 6:45 PM CHUCK WAGON COOK Inhaled Oxygen Concentration - - Weight 94 kg (207 lb 3.2 oz) 03/29/2024 1:10 PM CHUCK WAGON COOK Height 162.6 cm (5' 4) 03/29/2024 1:10 PM CHUCK WAGON COOK Body Mass Index 35.57 03/29/2024 1:10 PM CHUCK WAGON COOK Plan of Treatment Not on file Procedures Procedure Name Priority Date/Time Associated Diagnosis Comments GLUCOSE, RANDOM STAT 09/29/2015 9:50 PM CDT CYTOLOGY GYNECOLOGICAL Routine 2 11:50 AM CDT Routine adult health maintenance from Last 3 Months or Most Recently Relevant to Health Maintenance Results * Glucose, Serum (09/29/2015 9:50 PM CDT) Glucose 100 70 - 110 mg/dL 09/29/2015 10:20 PM CDT [facility] Blood Collection / Unknown 09/29/2015 9:50 PM CDT 09/29/2015 9:54 PM CDT us Brooke Conklin MD CHEMISTRY ORDERABLE Final Result [facility] [address] [place] [address] * CYTOLOGY GYNECOLOGICAL (08/26/2011 11:50 AM CDT) [facility]TOLOGY Normal [facility] Comment: [facility] Surgical Pathology Laboratory [address] [facility] [place] [address] CYTOLOGY REPORT Patient Name: BENITA SCHMITT Specimen No: [id number] Location: OP [facility] Age: 21 Sex: F Carlos. Date: 08/26/2011 Med. Rec. #: [id number] : 1990 Received: 08/27/2011 Physician(s): Myra Braun MD Reported: 09/02/2011 SOURCE OF SPECIMEN CERVICAL-THIN PREP (HPV REFLEX) Instant Powder Supervisor Screening CLINICAL HISTORY Menstrual History: Regular SPECIMEN ADEQUACY Satisfactory for evaluation. Endocervical/transformation zone component present. INTERPRETATION Negative for intraepithelial lesion or malignant cells. Electronically Signed Out [facility] /djs 09/02/2011 CERVIX UTERI STRUCTURE / Unknown 08/26/2011 11:50 AM CDT 08/27/2011 11:50 AM CDT Myra Braun MD PATHOLOGY/CYTOLOGY ORDERABLE Fi nal Result [facility] [address] [place] [id number] from Last 3 Months or Most Recently Relevant to Health Maintenance Administered Medications Insurance [facility] Address: [address] [address] [place] [address] [facility] PMAP/[facility] Address: [address] [address] [employer] Advance Directives For more information, please contact: [phone] * Full Code (Latest Code Status on File) Date Activated Date Inactivated Comments 03/29/2024 1:04 PM 03/30/2024 1:03 AM Question Answer Comments How was code status determined? Patient * Full Code Date Activated Date Inactivated Comments 06/30/2021 7:25 AM 07/02/2021 6:11 PM Question Answer Comments How was code status determined? Patient
--- OUTSIDE RECORDS SUMMARY | 2024-08-18 21:03 | XMS_ITS | Encounter Summary ---
Author Organization [place] Address [address] [facility] [place] [address] Care Team Providers Care Labor Commissioner Name Role Phone Eboni Garrett MD Primary Care Provider [phone] Brooke Jansen PA-C Unavailable [phone] No Ref-Primary, Physician Primary Care Provider Liane Garnica APRN OCEAN RESCUE LIEUTENANT Primary Care Provider [phone] Liane Garnica APRN OCEAN RESCUE LIEUTENANT Unavailable [phone] Encounter Details Date Type Department Care Team (Late st Contact Info) Description 07/13/2018 [facility] Extended Documentation [facility] [address] [address] Neyda Watson, PhD [address] [place] [address] Social History Tobacco Use Types Packs/Day Years Used Date Smoking Tobacco: Never Smokeless Tobacco: Never Alcohol Use Standard Drinks/Week Comments No 0 (1 standard drink = 0.6 oz pur e alcohol) PHQ-2 Answer Date Recorded PHQ-2 Score 6 06/24/2018 Comments No Sex and Gender Information Value Date Recorded Sex Assigned at Not on file Legal Sex Female 9:52 AM GRADUATE FELLOW Gender Identity Not on file Sexual Orientation [...] documented as of this encounter Care Teams Labor Commissioner Relationship Specialty [place] [address] [place] [address] PCP - General Family Practice 04/04/13 01/25/24 No Ref-Primary, Physician PCP - General 01/26/24 03/06/24 Liane Garnica APRN [employer] [address] [place] [address] PCP - General Family Medicine 03/07/24 Brooke Jansen PA-C [address] [place] [address] Assigned PCP 12/27/17 06/29/21 Liane Garnica APRN [employer] RESC[employer]ENA[employer] [address] [place] [address] Assigned PCP 03/19/24 documented as of this encounter
--- OUTSIDE RECORDS SUMMARY | 2024-08-18 21:03 | XMS_ITS | Clinical Summary ---
Author Organization [place] Address [facility] [place] [address] Care Team Providers Care Labeling Strategist Name Role Phone Liane Garnica APRN [employer]ORTER UPHOLST[employer]S Primary Care Provider [phone] Liane Garnica APRN [employer] Unavailable [phone] Allergies No known active allergies Medications rifampin [...] Date Type Department Care Team Description 05/20/2024 [facility] [address] [facility], [address] [place] [address] Annette Coyne MA [...] on file Legal Sex Female 9:52 AM PLANT MACHINIST Gender Identity Not on file Sexual Orientation Not on file 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 Not on file Not on file Last Filed Vital Signs Vital Sign Reading Time Taken Comments Blood Pressure 106/60 03/07/2024 1:16 PM PLANT MACHINIST Pulse 63 03/07/2024 1:16 PM PLANT MACHINIST Temperature 36.5 C (97.7 F) 03/07/2024 1:16 PM PLANT MACHINIST Respiratory Rate 16 01/26/2024 4:21 PM CDT Oxygen Saturation 97% 03/07/2024 1:16 PM PLANT MACHINIST Inhaled Oxygen Concentration - - Weight 93.9 kg (207 lb) 03/07/2024 1:16 PM PLANT MACHINIST Height 162.6 cm (5' 4) 03/07/2024 1:16 PM PLANT MACHINIST Body Mass Index 35.53 03/07/2024 1:16 PM PLANT MACHINIST Plan of Treatment Health Maintenance Due Date [...] HEPATITIS C ANTIBODY Routine 04/11/2013 8:26 AM PLANT MACHINIST Screen for STD (sexually transmitted disease) from [...] - BLOOD ORDERABLES Final Result PH LABORATORY [facility] [address] [facility] (Main level, no room number) [place] [address] * HIV Antigen Antibody Combo (12/18/2017 12:35 PM CDT) HIV Antigen Antibody Combo Nonreactive NR^Nonrea ctive 12/21/2017 10:45 AM CDT [facility] Comment:HIV-1 p24 Ag & HIV-1 /HIV-2 Ab Not Detected Blood specimen (specimen) 12/18/2017 12:35 PM CDT 12/18/2017 12:36 PM CDT Brooke Jansen PA-C LAB - BLOOD ORDERABLES F inal Result [facility] [address] [place] [address] * Pap imaged thin layer screen reflex to HPV if ASCUS - recommend age 25 - 29 (10/10/2016 4:58 PM CDT) PAP BBO Piña Report Patient Name: TOSHA SCHMITT MR#: [id number] Specimen #: [id number] Collected: 10/10/2016 Received: 10/13/2016 Reported: 10/15/2016 08:44 [...] OC Anguiano (ASCP) Processed and screened at [facility] CLINICAL HISTORY: Previous normal pap Date of Last Pap: 06/25/2012, Papanicolaou Test Limitations: Cervical cytology is a screening test with limited sensitivity; regular screening is critical for cancer prevention; Pap tests are primarily effective for the diagnosis/preventi on of squamous cell carcinoma, not adenocarcinomas or other cancers. TESTING LAB LOCATION: [address] [phone] COLLECTION SITE: Client: [facility]ologic material (specimen) 10/10/2016 4:58 PM CDT 10/13/2016 1:43 PM CDT Bridget Gerber APRN [employer] LAB - OPTIME CLINICAL SPECIMEN Final Result Performing Organization Address City[facility]/ZIP Co de Phone Number COPATH * Hepatitis C antibody (04/11/2013 8:26 AM PLANT MACHINIST) Hepatitis C Antibody Negative [facility] Blood specimen (specimen) 04/11/2013 8:26 AM PLANT MACHINIST 04/11/2013 8:27 AM PLANT MACHINIST Liane Garnica APRN [employer] LAB - BLOOD ORDERABLES Fin al Result [facility] [address] [place], [place] [id number] [place] [address] from Last 3 Months or Most Recently Relevant to Health Maintenance Insurance [employer] [place] [employer] [place] [employer] [facility] [employer] Address: [address] [place] [id number] [place] [address] Care Teams Labeling Strategist Relationship Specialty Start Date End Date Liane Garnica APRN [employer] [address] [place] [id number] PCP - General Family Medicine 03/07/24 Liane Garnica APRN [employer] [address] [place] [id number] Assigned PCP 03/19/24
--- OUTSIDE RECORDS SUMMARY | 2024-08-18 21:03 | XMS_ITS | Encounter Summary ---
Author Organization [place] Address [facility] [place] [address] Care Team Providers Care Steno Pool Supervisor Name Role Phone Liane Garnica APRN PARTS DELIVERY DRIVER Primary Care Provider [phone] Liane Garnica APRN PARTS DELIVERY DRIVER Unavailable [phone] Reason for Visit * Reason Onset Date Comments Patient Request 05/19/2024 Encounter Details Date Type Department Care Team (Late st Contact Info) Description 05/19/2024 Telephone [facility] [address] [facility], [address] [place] [address] Liane Garnica APRN PARTS DELIVERY DRIVER [address] [place], [place] [address] Patient Request Social History Tobacco Use Types [...] on file Legal Sex Female 9:52 AM GREETING CARD MAKER Gender Identity Not on file Sexual Orientation Not on file 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 Patient hasmoved and wants to know what she should do with her medication or care. What are your questions or concerns: contact patient Date of last appointment with provider: na Could we send this information to you in [employer] or would you prefer to receive a phone call?: Patient would prefer a phone call Okay to leave a detailed message?: Yes at Cell number on file: Telephone Information: TING CARD MAKER documented in this encounter Plan of Treatment Not on file documented as of this encounter Visit Diagnoses Not on filedocumented in this encounter Additional Health Concerns Assessment Noted Time PHQ-9 Depression Total Score: 16 019 9:14 AM CDT documented as of this encounter Care Teams Steno Pool Supervisor Relationship Specialty Start Date End Date Liane Garnica APRN PARTS DELIVERY DRIVER [address] [place] [id number] PCP - General Family Medicine 03/07/24 Liane Garnica APRN PARTS DELIVERY DRIVER [address] [place] [id number] Assigned PCP 03/19/24 documented as of this encounter
--- OUTSIDE RECORDS SUMMARY | 2024-08-18 21:04 | XMS_ITS | Encounter Summary ---
Author Organization [place] Address [facility] [place] [address] Care Team Providers Care Internal Communications Writer Name Role Phone Eboni Garrett MD Primary Care Provider Brooke Jansen-C Unavailable [phone] Brooke JansenC Unavailable [phone] No Ref-Primary, Physician Primary Care Provider Liane Garnica APRN SHAMPOO TECHNICIAN Primary Care Provider [phone] Liane Garnica APRN SHAMPOO TECHNICIAN Unavailable [phone] Reason for Visit * Reason Onset Date Comments Results 10/17/2016 Encounter Details Date Type Department Care Team (Late st Contact Info) Description 10/17/[address] [place] [id number] Bridget Gerber APRN SHAMPOO TECHNICIAN [address] [place] [address] Results Social History Tobacco Use Types Packs/Day [...] on file Legal 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 Patient verbalized understanding. Eboni Ortega CMA ([facility]) * Telephone Encounter - Karina Skinner [...] after that. [facility] Bridget Gerber NP-C documented in this encounter Plan of Treatment Not on file documented as of this encounter Visit Diagnoses Not on filedocumented in this encounter Care Teams Internal Communications Writer Relationship Specialty [place] [address] [place] [id number] PCP - General Family Practice 04/04/13 01/25/24 Brooke Jansen PA-C [address] [place] [address] PCP - Assigned PCP 12/27/17 06/29/18 No Ref-Primary, Physician PCP - General 01/26/24 03/06/24 Liane Garnica APRN SHAMPOO TECHNICIAN [address] [place] [address] PCP - General Family Medicine 03/07/24 Brooke Jansen PA-C [address] [place] [id number] Assigned PCP 12/27/17 06/29/21 Liane Garnica APRN SHAMPOO TECHNICIAN [address] [place] [id number] Assigned PCP 03/19/24 documented as of this encounter
--- OUTSIDE RECORDS SUMMARY | 2024-08-18 21:04 | XMS_ITS | Clinical Summary ---
Author Organization [facility] Address [address] [place] [address] Care Team Providers Care Fleet Driver Name Role Phone Unavailable Primary Care [...] as needed. 16 tablet 03/29/2024 4:59 PM SOFTWARE QUALITY TESTER 03/29/2024 Active Active Problems Problem Noted Date [...] drink = 0.6 oz pur e alcohol) Exton Depression Scale Answer Date Recorded Exton Depression Scale Total 2 07/01/2021 The thought [...] Comments Blood Pressure 105/56 03/29/2024 6:45 PM SOFTWARE QUALITY TESTER Pulse 60 03/29/2024 6:45 PM SOFTWARE QUALITY TESTER Temperature 36.5 C (97.7 F) 03/29/2024 6:00 PM SOFTWARE QUALITY TESTER Respiratory Rate 18 03/29/2024 6:45 PM SOFTWARE QUALITY TESTER Oxygen Saturation 98% 03/29/2024 6:45 PM SOFTWARE QUALITY TESTER Inhaled Oxygen Concentration - - Weight 94 kg (207 lb 3.2 oz) 03/29/2024 1:10 PM SOFTWARE QUALITY TESTER Height 162.6 cm (5' 4) 03/29/2024 1:10 PM SOFTWARE QUALITY TESTER Body Mass Index 35.57 03/29/2024 1:10 PM SOFTWARE QUALITY TESTER Plan of Treatment Health Maintenance Due Date [...] - 110 mg/dL 09/29/2015 10:20 PM CDT [facility] Blood Collection / Unknown 09/29/2015 9:50 PM CDT 09/29/2015 9:54 PM CDT us Brooke Conklin MD CHEMISTRY ORDERABLE Final Result [facility] [address] [place] [address] * CYTOLOGY GYNECOLOGICAL (08/26/2011 11:50 AM CDT) 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 Date: 08/26/2011 Med. Rec. #: [id number] : 1990 Received: 08/27/2011 Physician(s): Myra Braun MD Reported: 09/02/2011 SOURCE OF SPECIMEN CERVICAL-THIN PREP (HPV REFLEX) [employer] Screening CLINICAL HISTORY Menstrual History: Regular SPECIMEN ADEQUACY Satisfactory for evaluation. Endocervical/transformation zone component present. INTERPRETATION Negative for intraepithelial lesion or malignant cells. Electronically Signed Out [facility] /djs 09/02/2011 CERVIX UTERI STRUCTURE / Unknown 08/26/2011 11:50 AM CDT 08/27/2011 11:50 AM CDT Myra Braun MD PATHOLOGY/CYTOLOGY ORDERABLE Fi nal Result [facility] [address] [place] [address] from Last 3 Months or Most Recently Relevant to Health Maintenance Insurance [facility] [place] [id number] [facility] PMAP/[facility] [employer] Advance Directives For more information, please contact: [phone] * Full Code (Latest Code Status on File) Date Activated Date Inactivated Comments 03/29/2024 1:04 PM 03/30/2024 1:03 AM Question Answer Comments How was code status determined? Patient * Full Code Date Activated Date Inactivated Comments 06/30/2021 7:25 AM 07/02/2021 6:11 PM Question Answer Comments How was code status determined? Patient
== END 2024-08-18 21:03 | disposition home or self-care (01) ==
LOC: ED 21:01
PROVIDERS: Emergency Provider Family Medicine
DX: J10.1 Influenza due to other identified influenza virus with other respiratory manifestations (principal); R50.9 Fever, unspecified; R11.0 Nausea
CPT/HCPCS: 87631; 87651; 99283; 99284

== ENCOUNTER 2024-09-14 16:09 | Outpatient (CLI) | payer BC, SELFPAY | END 2024-09-14 16:10 | disposition home or self-care (01) | PROVIDERS: PCP Registered Nurse; Visit Provider Registered Nurse | DX: Z00.00 Encounter for general adult medical examination without abnormal findings (principal); Z13.228 Encounter for screening for other metabolic disorders; Z13.6 Encounter for screening for cardiovascular disorders; Z13.29 Encounter for screening for other suspected endocrine disorder | CPT/HCPCS: 80053; 80061; 84443 ==